=== PATIENT | male | born 1975 | race Caucasian/White ===

== ENCOUNTER → 2017-10-01 | Outpatient (CLI) | payer MEDICAID ==
--- NOTE | 2017-10-01 23:08 | MR ---
MRI CERVICAL SPINE: CLINICAL HISTORY: Neck pain causing bilateral hand pain, numbness, and tingling per patient. Cervical rissa, paresthesia, and C5-C6 cervical disc degeneration per order. TECHNIQUE: Multiplanar, multisequence imaging of the cervical spine is performed without IV contrast. . COMPARISON: None. FINDINGS: Sagittal images of the cervical spine show the craniocervical junction to appear within nor mal limits. The cervical and upper thoracic spinal cord is normal in course, caliber, and signal. V ertebral alignment is anatomic. The vertebral body and intravertebral disk heights are normal. Poste rior disc herniations are present at C5-C6 and C6-C7 levels on sagittal images effacing the anterior thecal sac. The bone marrow signal intensity is within normal limits. No significant spurring is seen . Axial images show the C2-C3 and C3-C4 levels to appear within normal limits. Axial images at C4-C5 level broad-based left paracentral disc protrusion effacing the anterolateral t hecal sac and causing asymmetric mild left-sided neural foraminal narrowing. Right-sided neural mary en is patent. Axial images at C5-C6 show lobulated paracentral disc protrusion effacing anterolateral thecal sac an d causing moderate bilateral neural foraminal narrowing. There is extension to right aspect of spinal cord causing slight flattening seen on axial image 26. Axial images at C6-C7 levels with broad-based right paracentral disc protrusion effacing anterolatera l thecal sac and causing asymmetric mild right-sided neural foraminal narrowing. Left-sided neural fo ramen is patent. Axial images at C7-T1 level are felt within normal limits. IMPRESSION: Degenerative changes C4-C5 and C6-C7 level with most prominent findings noted C5-C6 level as detailed above.
== END | disposition home or self-care (01) ==
LOC: RADMRIMAIN 17:49
PROVIDERS: ATTEND Orthopaedic Surgery Orthopaedic Surgery of the Spine
DX: M47.812 Spondylosis without myelopathy or radiculopathy, cervical region (principal)
CPT/HCPCS: 72141

== ENCOUNTER → 2017-12-11 | Day surgery (SDC) | payer MEDICAID ==
[2017-12-05 08:56] VITALS: BMI 47.5
[~2017-12-11] MED LIST: IV FLUID CONTINUATION 1,000 ML IV ONE; LACTATED RINGERS 1,000 ML IV SCH; LIDOCAINE 1% 20 ML VIAL (10MG/ML) FOR IV START INTRADERMA ONE
[2017-12-11 08:02] VITALS: TEMP 97.5
--- NOTE | 2017-12-11 08:58 | P.PCN ---
Date of Procedure: 12/11/17 Surgeon: Riley Pozo Pathology: none sent Condition: stable Disposition: PACU Description of Procedure: PREOPERATIVE DIAGNOSIS: Cervical radiculopathy. POSTOPERATIVE DIAGNOSIS: Cervical radiculopathy. PROCEDURE 1. Cervical epidural steroid injection under fluoroscopic guidance, C7-T1 level. 2. Cervical epidurogram. ANESTHESIA: Local anesthesia with 1% lidocaine and IV sedation with versed/ fentanyl. EBL: Minimal PROCEDURE INDICATION: The patient with neck pain and radiculitis unresponsive to conservative treatment consents for procedure, RAJ #1 today. No use of blood thinners. PROCEDURE DESCRIPTION / TECHNIQUE: The patient was seen and identified in the preoperative area. Risks, benefits, complications, and alternatives were discussed with the patient (including but not limited to incomplete pain relief, bleeding, infection, nerve damage, and allergies to medications), the patient agreed to proceed with the procedure and signed the consent after all questions were answered. Patient was taken to the OR and time out was completed to verify proper patient , position, laterality of pain, and allergies. Pt was placed in the prone position. A pillow was placed under the patients chest to increase the cervical interlaminar space. The cervical area was prepped and draped in the usual sterile fashion. Critical pause was taken. Vital signs were closely monitored during the procedure. Conscious sedation was used during the procedure to decrease patients anxiety. Using anterior-posterior fluoroscopy, the C7-T1 interlaminar space was identified and the skin over this site was marked and then infiltrated with 1% lidocaine subcutaneously in a left paramedian fashion. Subsequently, a 18-gauge 6-inch Tuohy epidural needle was inserted and advanced toward the epidural space by means of the loss of resistance technique and guided by AP and lateral fluoroscopy. After negative aspiration for blood or CSF and in the absence of paresthesias, the correct needle position in the epidural space was verified with the injection of 1 mL of the water soluble contrast dye Omnipaque- 180 and observing an excellent epidurogram with the epidural spread of the dye, after negative aspiration for blood and CSF and in the absence of paresthesias. Again after negative aspiration, a 5 ml mixture containing 20 mg of Decadron and 3 ml of preservative free Normal Saline solution was injected and a washout of epidurogram was seen. Needle was withdrawn intact, skin was cleansed, and bandages were applied. COMPLICATIONS: None COMMENTS: DISPOSITION / PLANS: The patient was placed in a supine position and transferred to the recovery area in a stable condition for observation. There was no evidence of upper extremity motor or sensory deficit after the procedure. Patient was discharged from the recovery room after meeting discharge criteria. Home discharge instructions were given to the patient by the staff. The patient was reexamined prior to discharge and there were no issues. The patient will schedule a follow up in the clinic in 2-4 weeks.
[2017-12-11 09:06] VITALS: RESP 16
[2017-12-11 09:15] LABS: Glucose,Whole Blood 122 mg/dL (75-99)
[2017-12-11 09:21] VITALS: BP 140/74; PULSE 74
--- NOTE | 2017-12-11 09:53 | FL ---
EXAMINATION TYPE: FL guided pain mgmt statistic DATE OF EXAM: 12/11/2017 HISTORY: Pain Cervical Epidural. FL 45 sec.
== END ==
LOC: ORPAIN 07:15
PROVIDERS: ATTEND Anesthesiology
DX: G89.29 Other chronic pain (principal); M54.12 Radiculopathy, cervical region; E66.9 Obesity, unspecified; Z68.42 Body mass index [BMI] 45.0-49.9, adult
CPT/HCPCS: 62321; J2250; J1100; Q9965; J3010; 99152

== ENCOUNTER 2018-01-07 06:28 | Day surgery (SDC) | payer MEDICAID ==
[2018-01-01 13:25] VITALS: BMI 47.5
[2018-01-07] MEDS ORDERED: LACTATED RINGERS 1,000 ML IV ONE ×2 (06:40→07:45)
[2018-01-07 06:41] VITALS: RESP 18; TEMP 97.8
[2018-01-07] MEDS ORDERED: LIDOCAINE 1% 20 ML VIAL (10MG/ML) FOR IV START INTRADERMA ONE (06:41)
[2018-01-07] MEDS ORDERED: IV FLUID CONTINUATION 1,000 ML IV ONE (08:34)
--- NOTE | 2018-01-07 08:40 | FL ---
EXAMINATION TYPE: FL guided pain mgmt statistic DATE OF EXAM: 01/07/2018 FLUOROSCOPY Fluoroscopy time of 12 seconds seconds was used during cervical epidural injection. 1 image/s docume nt/s the procedure.
[2018-01-07 08:43] VITALS: BP 127/76; PULSE 76
--- NOTE | 2018-01-09 11:13 | P.PCN ---
Date of Procedure: 01/07/18 Surgeon: Riley Pozo Pathology: none sent Condition: stable Disposition: PACU Description of Procedure: PREOPERATIVE DIAGNOSIS: Cervical radiculopathy. POSTOPERATIVE DIAGNOSIS: Cervical radiculopathy. PROCEDURE 1. Cervical epidural steroid injection under fluoroscopic guidance, C7-T1 level. 2. Cervical epidurogram. ANESTHESIA: Local anesthesia with 1% lidocaine and IV sedation with versed/ fentanyl. EBL: Minimal PROCEDURE INDICATION: The patient with neck pain and radiculitis unresponsive to conservative treatment consents for procedure, RAJ #2 today after 1-2 days' relief from previous procedure. No use of blood thinners. PROCEDURE DESCRIPTION / TECHNIQUE: The patient was seen and identified in the preoperative area. Risks, benefits, complications, and alternatives were discussed with the patient (including but not limited to incomplete pain relief, bleeding, infection, nerve damage, and allergies to medications), the patient agreed to proceed with the procedure and signed the consent after all questions were answered. Patient was taken to the OR and time out was completed to verify proper patient , position, laterality of pain, and allergies. Pt was placed in the prone position. A pillow was placed under the patients chest to increase the cervical interlaminar space. The cervical area was prepped and draped in the usual sterile fashion. Critical pause was taken. Vital signs were closely monitored during the procedure. Conscious sedation was used during the procedure to decrease patients anxiety. Using anterior-posterior fluoroscopy, the C7-T1 interlaminar space was identified and the skin over this site was marked and then infiltrated with 1% lidocaine subcutaneously in a left paramedian fashion. Subsequently, a 18-gauge 6-inch Tuohy epidural needle was inserted and advanced toward the epidural space by means of the loss of resistance technique and guided by AP and lateral fluoroscopy. After negative aspiration for blood or CSF and in the absence of paresthesias, the correct needle position in the epidural space was verified with the injection of 1 mL of the water soluble contrast dye Omnipaque- 180 and observing an excellent epidurogram with the epidural spread of the dye, after negative aspiration for blood and CSF and in the absence of paresthesias. Again after negative aspiration, a 3 ml mixture containing 10 mg of Decadron and 2 ml of preservative free Normal Saline solution was injected and a washout of epidurogram was seen. Needle was withdrawn intact, skin was cleansed, and bandages were applied. COMPLICATIONS: None COMMENTS: DISPOSITION / PLANS: The patient was placed in a supine position and transferred to the recovery area in a stable condition for observation. There was no evidence of upper extremity motor or sensory deficit after the procedure. Patient was discharged from the recovery room after meeting discharge criteria. Home discharge instructions were given to the patient by the staff. The patient was reexamined prior to discharge and there were no issues. The patient will schedule a follow up in the clinic in 2-4 weeks. Consider TPI in future.
== END 2018-01-07 09:01 | disposition home or self-care (01) ==
LOC: ORPAIN 06:28
PROVIDERS: ATTEND Anesthesiology
DX: G89.29 Other chronic pain (principal); M54.12 Radiculopathy, cervical region; E66.9 Obesity, unspecified; Z68.42 Body mass index [BMI] 45.0-49.9, adult
CPT/HCPCS: 62321; J2250; J1100; Q9965; J3010; 99152

== ENCOUNTER → 2018-01-29 | Outpatient (CLI) | payer MEDICAID ==
[2018-01-29 13:45] VITALS: BP 152/76; PULSE 80; RESP 18
--- NOTE | 2018-01-29 14:01 | P.PN ---
Subjective Progress Note Date: 01/29/18 Principal diagnosis: Cervical radiculopathy This is a 42-year-old male with history of cervical radiculopathy and numbness in his left hand. The patient underwent cervical epidural steroid injection twice which resulted in significant relief of his numbness. The patient now is fully functional in his left hand. The patient denies any bowel or bladder dysfunction or any weakness in the upper or lower extremities. Objective - Vital Signs Vital signs: Vital Signs Temp Pulse 80 01/29/18 13:34 Resp 18 01/29/18 13:34 BP 152/76 01/29/18 13:34 Pulse Ox 98 01/29/18 13:34 Intake & Output 01/28/18 01/29/18 01/29/18 18:59 06:59 18:59 Weight 158.757 kg - Constitutional General appearance: Present: morbidly obese - EENT Eyes: Present: PERRLA - Neurologic Neurologic: Present: CNII-XII intact - Musculoskeletal Musculoskeletal: Present: gait normal - Psychiatric Psychiatric: Present: A&O x's 3, appropriate affect, intact judgment & insight Assessment and Plan Plan: The patient is doing well status post cervical epidural steroid injection and we will see him on an as-needed basis.
== END | disposition home or self-care (01) ==
LOC: PNWHC3 13:19
PROVIDERS: ATTEND Anesthesiology
DX: M54.12 Radiculopathy, cervical region (principal); Z98.890 Other specified postprocedural states
CPT/HCPCS: 99211

== ENCOUNTER → 2018-03-28 | Outpatient (CLI) | payer MEDICAID ==
--- NOTE | 2018-03-28 17:11 | PN ---
PROGRESS NOTE DATE OF SERVICE: 03/28/2018 43-year-old gentleman has been [facility] of obstructive sleep apnea-hypopnea syndrome. Recently patient had CPAP titration and then he received his new CPAP unit. Today is his first visit with a new CPAP machine. According to the patient's , he still has episodes of snoring while pressure is 10 cm of water. Otherwise, the patient sleeps well with the machine without problems. Spurger Sleepiness Scale today is 7. I checked the patient's CPAP unit. CPAP pressure is 11 cm of water. Usage is 100% of the time more than 4 hours, average 7.5 hours. Leak is only 4 L/minute. Apnea-hypopnea index is only 0.9, which is totally perfect. MEDICATIONS: Tramadol, methocarbamol, Motrin. PHYSICAL EXAM: GENERAL Patient in no distress. VITAL SIGNS BP 156/74, HR 78, RR 16, weight 387, temp 97.9, oxygen saturation room air 97%. HEENT PERRLA, EOMI, evaluation of oropharynx showed low position of soft palate. NECK Supple, no JVD. Thyroid is not palpable. LUNGS Clear to percussion and to auscultation. Good air exchange. No wheezing or rhonchi. HEART S1, S2 regular. No murmurs, gallops, or rubs. ABDOMEN Soft and nontender. Bowel sounds are present. No organomegaly appreciated. EXTREMITIES No clubbing or cyanosis. CIGAR INSPECTOR Awake, alert, and oriented X3. Cranial nerves 2 to 7 intact. There is no fasciculation or atrophy. noted. No focal deficits observed. According to our records, patient increased his weight from 359 pounds up to 387 pounds, which is close to 30 pounds. IMPRESSION: 1. Obstructive sleep apnea-hypopnea syndrome. The patient demonstrated 100% compliance with treatment benefitting from treatment. 2. Obesity. Patient increased weight according to our records from about 30 pounds. 3. History of attention-deficit/hyperactivity disorder. 4. Back problems. 5. Neck pain. 6. History of numbness in hands. PLAN: 1. I will change the pressure in the machine to automatic regimen with range of pressure up to up to 15 cm of water to be sure there is not any snoring. 2. Losing weight. 3. Sleep hygiene with regular time in bed for at least 8 hours. 4. No driving if feeling sleepiness. Thank you very much for allowing me to participate in management of your patient. Sincerely, Ino Suarez MD, PhD, FAASM Diplomat of [employer] [employer] Budget Officer of [facility] [place] MMODL / ANGEL: [id number] /
== END | disposition home or self-care (01) ==
LOC: SLEEP 15:55
PROVIDERS: ATTEND Internal Medicine
DX: G47.33 Obstructive sleep apnea (adult) (pediatric) (principal); E66.9 Obesity, unspecified; F90.9 Attention-deficit hyperactivity disorder, unspecified type; M54.2 Cervicalgia; Z99.89 Dependence on other enabling machines and devices; Z79.1 Long term (current) use of non-steroidal anti-inflammatories (NSAID); Z79.891 Long term (current) use of opiate analgesic; Z79.899 Other long term (current) drug therapy; Z87.2 Personal history of diseases of the skin and subcutaneous tissue

== ENCOUNTER 2018-04-17 10:09 | Emergency (ER) | payer MEDICAID ==
[2018-04-17 10:39] VITALS: RESP 18
[2018-04-17] MEDS ORDERED: ONDANSETRON 4 MG/2 ML VIAL IVP STA (10:44)
--- NOTE | 2018-04-17 10:48 | ED ---
General Adult HPI - General Chief complaint: Nausea/Vomiting/Diarrhea Stated complaint: nausea Time Seen by Provider: 04/17/18 10:35 Source: patient, RN notes reviewed Mode of arrival: wheelchair Limitations: physical limitation - History of Present Illness Initial comments: Is a 43-year-old male who presents emergency Department with no significant past medical history. Patient states he has not been feeling well over the last week mostly nauseated with a couple episodes of vomiting. Patient states he has not vomited today. He did have an episode of diarrhea. Patient went into the urgent care because he just wasn't feeling well and they sent him over because they noted a flipped T-wave in leads V2 and V3. They have no old EKG to compare to. Patient denies any chest pain any palpitations any shortness of breath. Patient denies any jaw pain arm pain or back pain. Patient denies any pain with exertion. Patient denies any recent fever chills or cough. Patient denies any abdominal pain though he is nauseated and has vomited a couple times in the last week. Patient denies headache patient denies numbness weakness. Patient denies any lightheadedness or dizziness. - Related Data Home Medications Medication Instructions Recorded Confirmed traMADol HCL [Ultram] 100 mg PO Q6HR PRN 10/31/17 04/17/18 Ibuprofen [Motrin] 800 mg PO TID PRN 11/01/17 04/17/18 Baclofen [Lioresal] 5 mg PO TID 01/01/18 04/17/18 Allergies Allergy/AdvReac Type Severity Reaction Status Date / Time No Known Allergies Allergy Verified 04/17/18 11:07 Review of Systems ROS Statement: Those systems with pertinent positive or pertinent negative responses have been documented in the HPI. ROS Other: All systems not noted in ROS Statement are negative. Past Medical History Past Medical History: Sleep Apnea/CPAP/BIPAP Additional Past Medical History / Comment(s): uses cpap, BACK PAIN History of Any Multi-Drug Resistant Organisms: None Reported Past Surgical History: No Surgical Hx Reported Additional Past Surgical History / Comment(s): PAIN CLINIC INJECTION- Additional Past Anesthesia/Blood Transfusion Reaction / Comment(s): never has had general anesthesia or blood transfusion Past Psychological History: ADD/ADHD Smoking Status: Former smoker Past Alcohol Use History: Rare Past Drug Use History: None Reported - Past Family History Father Family Medical History: Cancer Additional Family Medical History / Comment(s): lung CA General Exam - General Exam Comments Initial Comments: GENERAL: Patient is well-developed and well-nourished. Patient is nontoxic and well- hydrated and is in mild distress. ENT: Neck is soft and supple. No significant lymphadenopathy is noted. Oropharynx is clear. Moist mucous membranes. Neck has full range of motion without eliciting any pain. EYES: The sclera were anicteric and conjunctiva were pink and moist. Extraocular movements were intact and pupils were equal round and reactive to light. Eyelids were unremarkable. PULMONARY: Unlabored respirations. Good breath sounds bilaterally. No audible rales rhonchi or wheezing was noted. CARDIOVASCULAR: There is a regular rate and rhythm without any murmurs gallops or rubs. ABDOMEN: Soft and nontender with normal bowel sounds. SKIN: Skin is clear with no lesions or rashes and otherwise unremarkable. NEUROLOGIC: Patient is alert and oriented x3. Cranial nerves II through XII are grossly intact. Motor and sensory are also intact. Normal speech, volume and content. Symmetrical smile. MUSCULOSKELETAL: Normal extremities with adequate strength and full range of motion. No lower extremity swelling or edema. No calf tenderness. LYMPHATICS: No significant lymphadenopathy is noted PSYCHIATRIC: Normal psychiatric evaluation. Normal interpersonal interactions appears functionally intact in deals appropriately with others. No signs of depression. No signs of anxiety. Limitations: physical limitation Course Vital Signs 04/17/18 04/17/18 10:35 13:02 Temperature 99.4 F 98.4 F Pulse Rate 80 73 Respiratory 18 18 Rate Blood Pressure 156/81 159/76 O2 Sat by Pulse 99 97 Oximetry Medical Decision Making - Medical Decision Making EKG shows normal sinus rhythm at 73 bpm IA interval is 134 QRS is 94 Q-T intervals 400 QTC is 440. Patient's EKG shows no acute abnormalities. Patient 's old EKG showed no T-wave inversions however the EKG from the office showed T- wave inversions in V2 and V3 I repeated an EKG which did not have any recent changes. I recommended that the patient be admitted he did not want to stay and said he follow up for stress test with his doctor. I told the patient be leaving A and he was in agreement Chest x-ray shows no acute abnormality - Lab Data Result diagrams: 04/17/18 11:00 04/17/18 11:00 Lab Results 04/17/18 04/17/18 04/17/18 Range/Units 11:00 11:00 11:00 WBC 7.5 (3.8-10.6) k/uL RBC 5.06 (4.30-5.90) m/uL Hgb 14.7 (13.0-17.5) gm/dL Hct 42.0 (39.0-53.0) % MCV 83.0 (80.0-100.0) fL MCH 29.0 (25.0-35.0) pg MCHC 34.9 (31.0-37.0) g/dL RDW 12.7 (11.5-15.5) % Plt Count 319 (150-450) k/uL Neutrophils % 76 % Lymphocytes % 16 % Monocytes % 5 % Eosinophils % 1 % Basophils % 1 % Neutrophils # 5.7 (1.3-7.7) k/uL Lymphocytes # 1.2 (1.0-4.8) k/uL Monocytes # 0.4 (0-1.0) k/uL Eosinophils # 0.1 (0-0.7) k/uL Basophils # 0.0 (0-0.2) k/uL PT (9.0-12.0) sec INR (<1.2) APTT (22.0-30.0) sec Sodium 140 (137-145) mmol/L Potassium 4.5 (3.5-5.1) mmol/L Chloride 105 (98-107) mmol/L Carbon Dioxide 24 (22-30) mmol/L Anion Gap 11 mmol/L BUN 16 (9-20) mg/dL Creatinine 0.83 (0.66-1.25) mg/dL Est GFR (CKD-EPI)AfAm >90 (>60 ml/min/1.73 sqM) Est GFR (CKD-EPI)NonAf >90 (>60 ml/min/1.73 sqM) Glucose 124 H (74-99) mg/dL Calcium 9.7 (8.4-10.2) mg/dL Magnesium 2.0 (1.6-2.3) mg/dL Total Bilirubin 0.7 (0.2-1.3) mg/dL AST 26 (17-59) U/L ALT 49 (21-72) U/L Alkaline Phosphatase 53 (38-126) U/L Total Creatine Kinase 144 (55-170) U/L CK-MB (CK-2) 0.7 (0.0-2.4) ng/mL CK-MB (CK-2) Rel Index 0.5 Troponin I <0.012 (0.000-0.034) ng/mL Total Protein 7.3 (6.3-8.2) g/dL Albumin 4.6 (3.5-5.0) g/dL 04/17/18 Range/Units 11:30 WBC (3.8-10.6) k/uL RBC (4.30-5.90) m/uL Hgb (13.0-17.5) gm/dL Hct (39.0-53.0) % MCV (80.0-100.0) fL MCH (25.0-35.0) pg MCHC (31.0-37.0) g/dL RDW (11.5-15.5) % Plt Count (150-450) k/uL Neutrophils % % Lymphocytes % % Monocytes % % Eosinophils % % Basophils % % Neutrophils # (1.3-7.7) k/uL Lymphocytes # (1.0-4.8) k/uL Monocytes # (0-1.0) k/uL Eosinophils # (0-0.7) k/uL Basophils # (0-0.2) k/uL PT 10.4 (9.0-12.0) sec INR 1.1 (<1.2) APTT 19.9 L (22.0-30.0) sec Sodium (137-145) mmol/L Potassium (3.5-5.1) mmol/L Chloride (98-107) mmol/L Carbon Dioxide (22-30) mmol/L Anion Gap mmol/L BUN (9-20) mg/dL Creatinine (0.66-1.25) mg/dL Est GFR (CKD-EPI)AfAm (>60 ml/min/1.73 sqM) Est GFR (CKD-EPI)NonAf (>60 ml/min/1.73 sqM) Glucose (74-99) mg/dL Calcium (8.4-10.2) mg/dL Magnesium (1.6-2.3) mg/dL Total Bilirubin (0.2-1.3) mg/dL AST (17-59) U/L ALT (21-72) U/L Alkaline Phosphatase (38-126) U/L Total Creatine Kinase (55-170) U/L CK-MB (CK-2) (0.0-2.4) ng/mL CK-MB (CK-2) Rel Index Troponin I (0.000-0.034) ng/mL Total Protein (6.3-8.2) g/dL Albumin (3.5-5.0) g/dL Disposition Clinical Impression: Nausea & vomiting Disposition: Left Against Medical Advice Instructions: Acute Nausea and Vomiting (ED), Chest Pain (ED) Is patient prescribed a controlled substance at d/c from ED?: No Referrals: Julio Narvaez MD [Primary Care Provider] - 1-2 days Time of Disposition: 13:37
[2018-04-17 11:25] LABS: Basophils % (A) 1 %; Eosinophils # (A) 0.1 k/uL (0-0.7); Eosinophils % (A) 1 %; HGB 14.7 gm/dL (13.0-17.5); Lymphocytes # (A) 1.2 k/uL (1.0-4.8); Lymphocytes % (A) 16 %; MCHC 34.9 g/dL (31.0-37.0); Mean Platelet Volume 6.8; Monocytes # (A) 0.4 k/uL (0-1.0); Monocytes % (A) 5 %; Neutrophils # (A) 5.7 k/uL (1.3-7.7); Neutrophils % (A) 76 %; Platelet Count 319 k/uL (150-450); RBC 5.06 m/uL (4.30-5.90); RDW 12.7 % (11.5-15.5); WBC 7.5 k/uL (3.8-10.6)
[2018-04-17 11:45] LABS: ALT 49 U/L (21-72); AST 26 U/L (17-59); Albumin 4.6 g/dL (3.5-5.0); Alkaline Phosphatase 53 U/L (38-126); Anion Gap 11 mmol/L; Blood Urea Nitrogen 16 mg/dL (9-20); Calcium 9.7 mg/dL (8.4-10.2); Carbon Dioxide 24 mmol/L (22-30); Chloride 105 mmol/L (98-107); Glucose 124 mg/dL (74-99); Potassium 4.5 mmol/L (3.5-5.1); Sodium 140 mmol/L (137-145); Total Bilirubin 0.7 mg/dL (0.2-1.3); Total Protein 7.3 g/dL (6.3-8.2)
[2018-04-17 11:48] LABS: Creatine Kinase 144 U/L (55-170)
--- NOTE | 2018-04-17 11:57 | XR ---
EXAMINATION TYPE: XR chest 2V DATE OF EXAM: 04/17/2018 COMPARISON: 11/26/2010 INDICATION: Chest pain TECHNIQUE: Frontal and lateral views of the chest are obtained. FINDINGS: The heart size is normal. The pulmonary vasculature is normal. The lungs are clear. IMPRESSION: 1. No acute pulmonary process.
[2018-04-17 12:00] LABS: Creatine Kinase MB 0.7 ng/mL (0.0-2.4); Troponin I <0.012 ng/mL (0.000-0.034)
[2018-04-17 12:21] LABS: INR 1.1 (<1.2); Prothrombin Time 10.4 sec (9.0-12.0)
[2018-04-17 12:38] LABS: Partial Thromboplastin Time 19.9 sec (22.0-30.0)
[2018-04-17 13:58] VITALS: BP 160/89; PULSE 80; TEMP 98.6
== END 2018-04-17 13:58 | disposition left against medical advice (07) ==
LOC: EC 10:09
DX: R11.2 Nausea with vomiting, unspecified (principal); R19.7 Diarrhea, unspecified; G47.30 Sleep apnea, unspecified; Z99.89 Dependence on other enabling machines and devices; Z87.891 Personal history of nicotine dependence; Z79.899 Other long term (current) drug therapy
CPT/HCPCS: 36415; 93005; 80053; 82550; 82553; 83735; 84484; 85025; 85610; 85730; 71046; 99284; 96374; J2405

== ENCOUNTER → 2018-04-30 | Outpatient (CLI) | payer MEDICAID ==
--- NOTE | 2018-04-30 13:26 | P.STRESS ---
- Stress Test Note Stress Test Results/Findings: Exam Performed: stress test Exam Date: 04/30/18 Reason for Exam: ABN EKG Height: 6 ft Weight: 167.376 kg Protocol: GINETTE Stage: 3 Duration of Exercise: 6:30 Resting Heart Rate: 94 Resting Blood Pressure: 155/103 Maximum Achieved Heart Rate: 152 Maximum Achieved Blood Pressure: 220/54 85% PMHR: 149 100% PMHR: 175 METS: 7.7 Technologist Comment: Stress Test Results/Findings: This is a 43-year-old gentleman with history of hypertension and abnormal EKG being evaluated for Cardec status. Stress data: Baseline EKG showed sinus rhythm with normal NC interval and QRS duration. Blood pressure at rest is 155/103 with pulse rate of 94. Patient walked on a Ginette protocol for 6 minutes and 30 seconds achieving a maximum heart rate of 152 with a blood pressure of 219/88. EKGs taken during and after the exercise did not reveal any significant changes from the baseline. Occasional PVCs were noted. Final impression: #1. Negative stress test #2 .patient did not express any chest pain #3. Patient's exercise capacity is about average. #4. No arrhythmias detected.
--- NOTE | 2018-05-01 12:47 | ECHOF ---
Referral Reason:R94.31 Abnormal EKG MEASUREMENTS -------- HEIGHT: 175.3 cm WEIGHT: 167.4 kg BP: RVIDd: 3.1 cm (< 3.3) IVSd: 1.4 cm (0.6 - 1.1) LVIDd: 4.1 cm (3.9 - 5.3) LVPWd: 1.4 cm (0.6 - 1.1) IVSs: 1.6 cm LVIDs: 3.6 cm LVPWs: 1.4 cm LAESV Index (A-L): 21.92 ml/m Ao Diam: 3.9 cm (2.0 - 3.7) AV Cusp: 2.3 cm (1.5 - 2.6) LA Diam: 4.1 cm (2.7 - 3.8) MV EXCURSION: 14.837 mm (> 18.000) MV EF SLOPE: 54 mm/s (70 - 150) EPSS: 0.4 cm MV E Conrado: 0.67 m/s MV DecT: 294 ms MV A Conrado: 0.78 m/s MV E/A Ratio: 0.86 FINDINGS -------- Sinus rhythm. Morbid Obesity The left ventricular size is normal. There is mild concentric left ventricular hypertrophy. Overa ll left ventricular systolic function is low-normal with, an EF between 50 - 55 %. The right ventricle is normal in size. The left atrial size is normal. Normal LA size by volume 22+/-6 ml/m2. The right atrial size is normal. There is mild aortic valve sclerosis. There is no evidence of aortic regurgitation. Mild mitral annular calcification present. Mild mitral regurgitation is present. Mild tricuspid regurgitation present. There is no evidence of pulmonary hypertension. The right v entricular systolic pressure, as measured by Doppler, is {RVSP}. There is no pulmonic regurgitation present. The aortic root size is normal. Echo free space represents a pericardial fat pad. CONCLUSIONS -------- 1. Sinus rhythm. 2. Morbid Obesity 3. The left ventricular size is normal. 4. There is mild concentric left ventricular hypertrophy. 5. Overall left ventricular systolic function is low-normal with, an EF between 50 - 55 %. 6. The right ventricle is normal in size. 7. There is mild aortic valve sclerosis. 8. Mild mitral annular calcification present. 9. Mild mitral regurgitation is present. 10. Mild tricuspid regurgitation present. 11. There is no evidence of pulmonary hypertension. 12. The right ventricular systolic pressure, as measured by Doppler, is {RVSP}. 13. There is no pulmonic regurgitation present. 14. The aortic root size is normal. 15. Echo free space represents a pericardial fat pad. SUPREME COURT JUDGE: Maci Heath RDCS
== END ==
LOC: RADNMMAIN 11:01
PROVIDERS: ATTEND Internal Medicine
DX: I08.3 Combined rheumatic disorders of mitral, aortic and tricuspid valves (principal)
CPT/HCPCS: 93017; 93306

== ENCOUNTER → 2021-07-07 | Outpatient (CLI) | payer OTHER ==
--- NOTE | 2021-07-07 20:26 | CONS ---
CONSULTATION DATE OF SERVICE: 07/07/2021 This 46-year-old gentleman has been evaluated in [facility] for obstructive sleep apnea-hypopnea syndrome. The last time I saw the patient was in the beginning of 2018. HISTORY OF PRESENT ILLNESS/SLEEP-WAKE EVALUATION: The patient has had a history of obstructive sleep apnea-hypopnea syndrome for about 14 years. Since that time, he has been on treatment with CPAP and he continues to use equipment every night for the whole night. During his last visit, I changed the regimen of his machine to automatic, and again he continued to use the equipment every night for the whole night. His sleep schedule is from 11:30 p.m. to 7 a.m. on working days and from midnight until 9 a.m. on weekends. No problems with falling asleep. No TV in bedroom. He sleeps in different positions. He may wake up from sleep once with an episode of nocturia. No history of hypnagogic hallucinations, sleep paralysis or cataplexy. [place] Sleepiness Scale today is 4, which is totally normal. PAST MEDICAL HISTORY: Positive for ADHD, back pain, neck pain, numbness in hands. PAST SURGICAL HISTORY: None. MEDICATIONS: Motrin 800 mg as needed, methocarbamol 750 mg as needed. SOCIAL HISTORY: Positive for smoking for about 10 pack/years; quit 17 years ago. Alcohol consumption occasional. FAMILY HISTORY: Hypertension, heart problems, cancer. REVIEW OF SYSTEMS: No fevers. No double vision. No recent chest pain. No shortness of breath. No abdominal pain. No bleeding episodes. No blood in the urine. No seizure episodes. Rare snoring. PHYSICAL EXAMINATION: GENERAL: A pleasant gentleman without distress. VITAL SIGNS: BP 187/104, HR 72, RR 15, height 6 feet 0 inches, weight 358. Body mass index 48.5. Temperature 98.3, oxygen saturation at room air 98%. HEENT: PERRLA, EOMI, evaluation of oropharynx showed tongue protrudes midline. Extremely low position of soft palate. Mallampati IV. NECK: Supple, no JVD. Thyroid is not palpable. LUNGS: Clear to percussion and to auscultation. Good air exchange. No wheezing or rhonchi. HEART: S1, S2 regular. No murmurs, gallops, or rubs. ABDOMEN: Obese. EXTREMITIES: No clubbing or cyanosis. GRANULIZING MACHINE OPERATOR: Awake, alert, and oriented X3. Cranial nerves 2 to 7 intact. There is no fasciculation or atrophy. noted. No focal deficits observed. I checked the patient's CPAP unit. Range of the pressure is 10-15, average pressure 12.9. Usage is 100% of the nights more than 4 hours. Average usage is 7.5 hours per night. Leak is only 2 L/minute. Apnea-hypopnea index is 0.3, which is totally normal. IMPRESSION: 1. Obstructive sleep apnea-hypopnea syndrome. Patient demonstrated 100% compliance with treatment. Normal respiration on CPAP. 2. Obesity. 3. History of attention deficit hyperactivity disorder. 4. Back problems. 5. History of neck problems. 6. History of numbness in hands. PLAN: 1. Patient will continue to use AutoPAP every night for the whole night. I will keep CPAP pressure in the machine at 10-15 cm of water. 2. Losing weight. 3. Sleep hygiene with regular time in bed for at least 7-1/2 to 8 hours. 4. No driving if feeling sleepiness. 5. Prescription for all necessary CPAP supplies, including mask, tube, filters. 6. Follow-up visit in 6 months. Thank you very much for allowing me to participate in the management of your patient. Sincerely, Ino Suarez MD, PhD, FAASM Diplomat of [place] [employer] Sleep Medicine Board of [place] [employer] Professor Of [employer] of [facility] [place] MMADDYL / ANGEL: [id number] /
== END ==
LOC: SLEEP 14:19
PROVIDERS: ATTEND Internal Medicine
DX: G47.33 Obstructive sleep apnea (adult) (pediatric) (principal); E66.9 Obesity, unspecified; F90.9 Attention-deficit hyperactivity disorder, unspecified type; Z86.69 Personal history of other diseases of the nervous system and sense organs; M53.80 Other specified dorsopathies, site unspecified; M53.82 Other specified dorsopathies, cervical region; Z68.42 Body mass index [BMI] 45.0-49.9, adult; Z99.89 Dependence on other enabling machines and devices
CPT/HCPCS: 99202

== ENCOUNTER → 2021-12-07 | Outpatient (CLI) | payer OTHER ==
--- NOTE | 2021-12-08 07:44 | CT ---
EXAMINATION TYPE: CT urogram wo/w con DATE OF EXAM: 12/07/2021 COMPARISON: None. HISTORY: Hematuria CT DLP: 9420.60 mGycm, Automated Exposure Control for Dose Reduction was Utilized. CONTRAST: CT scan of the abdomen and pelvis is performed without oral and without and with IV Contrast, patient injected with 100 mL of Isovue 300. Urogram protocol. Three-D reconstructed images were created on a n independent workstation and reviewed. FINDINGS: KUB: Noncontrast images show no renal calculi bilaterally. Postcontrast images show symmetric cortica l medullary uptake and excretion without concerning solid or cystic renal mass or hydronephrosis seen bilaterally. Delayed imaging shows satisfactory opacification of bilateral ureters without obstructi ng calculus. Urinary bladder shows no intraluminal calculus. On delayed imaging there is contrast kaasndra ling shows suspicious lobulated hypoechoic mass along the left posterior bladder wall measuring appro ximately 1.4 x 1.2 x 1.7 cm axial series 10 image 80 and series 18 image 81 along with coronal image 101 series 15 and sagittal image 137 series 17. LUNG BASES: No significant abnormality is appreciated. LIVER/GB: On noncontrast images liver is heterogeneously slightly hypodense relative to spleen consis tent with mild diffuse fatty infiltration. Somewhat contracted gallbladder. No biliary dilatation. PANCREAS: No significant abnormality is seen. SPLEEN: No significant abnormality is seen. ADRENALS: No significant abnormality is seen. BOWEL: Incidental normal-appearing appendix right lower quadrant. PROSTATE/SEMINAL VESICLES: No gross abnormality seen. LYMPH NODES: No greater than 1cm abdominal or pelvic lymph nodes are appreciated. OSSEOUS STRUCTURES: No significant abnormality is seen. OTHER: No significant additional abnormality is seen. IMPRESSION: There is a suspicious intraluminal posterior left lobulated 1.7 cm hypodense mass within the bladder worrisome for neoplasm given patient history of hematuria. Further investigation with cys toscopy or direct visualization is advised.
== END | disposition home or self-care (01) ==
LOC: RADCTMAIN 15:26
PROVIDERS: ATTEND Urology
DX: R93.41 Abnormal radiologic findings on diagnostic imaging of renal pelvis, ureter, or bladder (principal)
CPT/HCPCS: 84153; 74178; 74400; Q9967

== ENCOUNTER → 2021-12-19 | Outpatient (CLI) | payer OTHER ==
[2021-12-19 18:58] LABS: Basophils # (A) 0.06 X 10*3/uL (0.00-0.10); Basophils % (A) 0.9 %; Eosinophils % (A) 1.6 %; HCT 41.3 % (39.6-50.0); Lymphocytes # (A) 1.61 X 10*3/uL (0.90-5.00); Lymphocytes % (A) 25.3 %; MCH 30.5 pg (27.0-32.0); MCHC 33.9 g/dL (32.0-37.0); Mean Platelet Volume 9.9 fL (9.5-12.2); Monocytes # (A) 0.65 X 10*3/uL (0.20-1.00); Monocytes % (A) 10.2 %; Neutrophils # (A) 3.85 X 10*3/uL (1.80-7.70); Neutrophils % (A) 60.6 %; Platelet Count 244 X 10*3/uL (140-440); RBC 4.59 X 10*6/uL (4.40-5.60); RDW 11.9 % (11.5-14.5); WBC 6.36 X 10*3/uL (4.50-10.00)
[2021-12-19 19:11] LABS: African American GFR (CKD) 116.9 (60.0-200.0); Anion Gap 14.8 mmol/L (10.00-18.00); BUN/Creat Ratio 14.73 Ratio (12.00-20.00); Blood Urea Nitrogen 13.2 mg/dL (9.0-27.0); Calcium 9.9 mg/dL (8.7-10.3); Carbon Dioxide 21.4 mmol/L (20.0-27.5); Non-African American GFR(CKD) 100.8 (60.0-200.0); Potassium 4.3 mmol/L (3.5-5.5)
== END | disposition home or self-care (01) ==
LOC: LABPAT 11:06
PROVIDERS: ATTEND Urology
DX: Z01.812 Encounter for preprocedural laboratory examination (principal); C67.9 Malignant neoplasm of bladder, unspecified
CPT/HCPCS: 80048; 85025

== ENCOUNTER 2021-12-20 12:58 | Day surgery (SDC) | payer OTHER ==
[2021-12-15 10:54] VITALS: BMI 47.5
--- NOTE | 2021-12-18 19:17 | P.GSHP ---
History of Present Illness H&P Date: 12/18/21 46 yo male with gross hematuria. He had a ct scan showing normal upper tracts. THe bladder phase suggested a growth in the bladder. Cystoscopy identfied a medium sized papillary tumor on the left posterior bladder wall. He quit smoking 15 years ago. He comes for a turbt. - Constitutional Constitutional: Denies chills, Denies fever - EENT Eyes: denies blurred vision, denies pain Ears, nose, mouth and throat: Denies headache, Denies sore throat - Cardiovascular Cardiovascular: Denies chest pain, Denies shortness of breath - Respiratory Respiratory: Denies cough, Denies 7 - Gastrointestinal Gastrointestinal: Denies abdominal pain, Denies diarrhea, Denies nausea, Denies vomiting - Genitourinary (Female) Genitourinary: Denies dysuria, Denies hematuria - Genitourinary (Male) Genitourinary: Denies dysuria, Denies hematuria - Musculoskeletal Musculoskeletal: Denies myalgias - Integumentary Integumentary: Denies pruritus, Denies rash - Neurological Neurological: Denies numbness, Denies weakness - Psychiatric Psychiatric: Denies anxiety, Denies depression - Endocrine Endocrine: Denies fatigue, Denies weight change Past Medical History Past Medical History: Cancer, Hyperlipidemia, Hypertension, Sleep Apnea/CPAP/BIPAP Additional Past Medical History / Comment(s): Uses CPAP, back pain, bladder tumor diagnosed 12/14/21. History of Any Multi-Drug Resistant Organisms: None Reported Past Surgical History: No Surgical Hx Reported Additional Past Surgical History / Comment(s): PAIN CLINIC INJECTION. Past Anesthesia/Blood Transfusion Reactions: Motion Sickness Additional Past Anesthesia/Blood Transfusion Reaction / Comment(s): Never has had general anesthesia or blood transfusion. Past Psychological History: ADD/ADHD Smoking Status: Former smoker Past Alcohol Use History: Occasional Additional Past Alcohol Use History / Comment(s): Quit smoking approx. 2006, STARTED SMOKING AT AGE 17, SMOKED 1/2PPD. Past Drug Use History: None Reported - Past Family History Father Family Medical History: Cancer Additional Family Medical History / Comment(s): Lung cancer. Mother Family Medical History: Cancer Additional Family Medical History / Comment(s): Cervical cancer. Medications and Allergies Home Medications Medication Instructions Recorded Confirmed Type Ibuprofen 800 mg PO Q8H PRN 12/15/21 12/15/21 History Losartan [Cozaar] 50 mg PO BID 12/15/21 12/15/21 History Methocarbamol [Robaxin-750] 750 mg PO DIRECTED PRN 12/15/21 12/15/21 History Metoprolol Tartrate 25 mg PO BID 12/15/21 12/15/21 History Allergies Allergy/AdvReac Type Severity Reaction Status Date / Time No Known Allergies Allergy Verified 12/15/21 11:50 Surgical - Exam - General well developed, well nourished, no distress - Eyes PERRL - ENT no hearing loss - Neck no masses - Respiratory normal expansion, normal respiratory effort - Cardiovascular Rhythm: regular - Abdomen Abdomen: soft, non tender - Genitourinary normal penis with no external lesions, testicles present - Integumentary no rash, no growths - Neurologic normal coordination, normal sensation - Musculoskeletal normal gait, normal posture - Psychiatric oriented to time, oriented to person, oriented to place, speech is normal, memory intact Results - Imaging CT scan - abdomen: report reviewed, image reviewed CT scan - pelvis: report reviewed, image reviewed Assessment and Plan Assessment: Impression: papillary bladder tumor Plan: turbt
[~2021-12-20 12:58] MED LIST changes: +DEXAMETHASONE SOD PHOSPHATE 4 MG/ML 1 ML VIAL IV ONE; +HYDROmorphone 0.5 MG/0.5 ML SYRINGE IVP PRN; -IV FLUID CONTINUATION 1,000 ML IV ONE; +LIDOCAINE 1% (10MG/ML) FOR IV START INTRADERMA PRN; -LIDOCAINE 1% 20 ML VIAL (10MG/ML) FOR IV START INTRADERMA ONE; +ONDANSETRON 4 MG/2 ML VIAL IVP ONE; +Pre Op ABX Message 1 EACH MISC MISCELLANE ONE; +SCOPOLAMINE 1.5MG/72HR PATCH TRANSDERM ONE
[2021-12-20] MEDS ORDERED: MIDAZOLAM 2 MG/2 ML VIAL IVP ONE (13:50)
[2021-12-20] MEDS ORDERED: NEOSTIGMINE 1 MG/ML 10 ML VIAL ONE (14:12)
[2021-12-20] MEDS ORDERED: ROCURONIUM 10 MG/ML (5 ML VIAL) IV ONE (14:12)
[2021-12-20] MEDS ORDERED: fentaNYL (PF) 50 MCG/ML 2 ML AMP ONE (14:12)
[2021-12-20] MEDS ORDERED: KETOROLAC 15 MG/ML 1 ML VIAL ONE (14:12)
[2021-12-20] MEDS ORDERED: SUCCINYLCHOLINE CHLORIDE 100 MG/5 ML SYR IV ONE (14:12)
[2021-12-20] MEDS ORDERED: GLYCOPYRROLATE 0.2 MG/ML 2 ML VIAL ONE (14:12)
[2021-12-20] MEDS ORDERED: PROPOFOL 10 MG/ML 20 ML VIAL IV ONE (14:12)
[2021-12-20] MEDS ORDERED: MIDAZOLAM 2 MG/2 ML VIAL ONE (14:12)
--- NOTE | 2021-12-20 14:52 | P.OP ---
Date of Procedure: 12/20/21 Preoperative Diagnosis: papillary bladder tumor left lateral trigone, 2.5 cm Postoperative Diagnosis: same Procedure(s) Performed: transurethral resection of bladder tumor, medium (2.5 cm) Anesthesia: CHRISTAL Surgeon: Franklin Maurer Estimated Blood Loss (ml): 10 Pathology: other (bladder tumor) Condition: stable Disposition: PACU Indications for Procedure: the patient is 46. Gross hematuria. He had normal upper tracts. Bladder endoscopy identified a papillary bladder tumor in the left lateral trigone a 2.5 cm Description of Procedure: the patient is brought to the operating suite. He is given general endotracheal anesthesia. He's placed lithotomy position with a sterile prep and drape. Under direct vision the 25-Samoan sheath and direct vision obturator and Foroblique lenses introduced in urethra. Urethra is normal. The prostate is not obstructing. Upon entering the bladder wall there is a papillary appearing tumor lateral to the left renal orifice. With the Qiu resectoscope, super loop the tumor was resected medial to laterally down to muscle base. The base of the tumor is cauterized thoroughly. the tumor is evacuated from the bladder. I reinspected the bladder there is no remaining tumor.the resectoscope removed. An 18-Samoan Zapata catheters placed patient's awakened and returned recovery room good condition. Blood loss is 10 mL. He tolerated the procedure well and will be discharged home upon recovery. The catheter be removed in 3 days and he'll follow in the office in one week
[2021-12-20 14:58] VITALS: TEMP 97.5
[2021-12-20] MEDS ORDERED: LACTATED RINGERS 1,000 ML IV ONE (15:07)
[2021-12-20 15:54] VITALS: RESP 15
[2021-12-20 16:21] VITALS: BP 114/71; PULSE 61
== END 2021-12-20 16:42 | disposition home or self-care (01) ==
LOC: OR 12:58
PROVIDERS: ATTEND Urology
DX: C67.9 Malignant neoplasm of bladder, unspecified (principal); E78.5 Hyperlipidemia, unspecified; I10 Essential (primary) hypertension; M54.9 Dorsalgia, unspecified; Z98.890 Other specified postprocedural states; G47.33 Obstructive sleep apnea (adult) (pediatric); F90.9 Attention-deficit hyperactivity disorder, unspecified type; Z87.891 Personal history of nicotine dependence; Z80.1 Family history of malignant neoplasm of trachea, bronchus and lung; Z80.49 Family history of malignant neoplasm of other genital organs; Z79.1 Long term (current) use of non-steroidal anti-inflammatories (NSAID); Z79.899 Other long term (current) drug therapy
CPT/HCPCS: 52235; 88307; J2250; J1100; J2710; J2405; J3010; J1885; J0330; J2704

== ENCOUNTER → 2022-03-01 | Outpatient (CLI) | payer OTHER ==
--- NOTE | 2022-03-01 20:14 | SFUN ---
SLEEP CENTER FOLLOW UP NOTE DATE OF SERVICE: 03/01/2022. This 46-year-old gentleman has been followed in Sleep Center for treatment of obstructive sleep apnea-hypopnea syndrome. The patient continues to use CPAP equipment every night. At present he has two CPAP units. He started to use two units after he had COVID in December of 2020. The patient continues to use his machines every night. Alexis Sleepiness Scale today is 4, which is totally normal. I checked his CPAP units. Older CPAP unit pressure is 15 cm of water. Usage is 16/30 nights, average usage about 5 hours. Newer CPAP unit is in automatic regimen, range of the pressure 10 to 15, average pressure 13.5. Usage is 18/30 nights and 14/30 nights for more than 4 hours. Leak is 6 L/minute. Apnea-hypopnea index is only 0.2, which is absolutely perfect. MEDICATIONS: 1. Losartan 50 mg twice a day. 2. Metoprolol 25 mg twice a day. 3. Methocarbamol 750 mg as needed. 4. Ibuprofen 800 mg as needed. PHYSICAL EXAMINATION: GENERAL: Pleasant patient in no distress. VITAL SIGNS: BP 133/88, HR 74, RR 15, weight 373.6 pounds. Patient's weight increased by 15 pounds since his previous visit. Temperature 97.4, oxygen saturation at room air 98%. HEENT: PERRLA, EOMI, evaluation of oropharynx showed tongue protrudes midline. Extremely low position of soft palate; Mallampati IV. NECK: Supple, no JVD. Thyroid is not palpable. LUNGS: Clear to percussion and to auscultation. Good air exchange. No wheezing or rhonchi. HEART: S1, S2 regular. No murmurs, gallops, or rubs. ABDOMEN: Obese. EXTREMITIES: No clubbing or cyanosis. SAFETY EQUIPMENT TESTING SPECIALIST: Awake, alert, and oriented X3. Cranial nerves 2 to 7 intact. There is no fasciculation or atrophy. noted. No focal deficits observed. IMPRESSION: 1. Obstructive sleep apnea-hypopnea syndrome. Patient demonstrated great compliance with treatment, benefitting from treatment. Normal respiration on CPAP. 2. History of attention deficit hyperactivity disorder. 3. Obesity. Patient's weight increased by 15 pounds compared to the previous visit. 4. Back problems. 5. History of neck problems. 6. History of numbness in hands. PLAN: 1. Patient will continue to use PAP equipment every night for the whole night. 2. Sleep hygiene with regular time in bed for at least 7-1/2 to 8 hours. 3. Precautions related to driving. No driving if feeling sleepiness. 4. I will maintain all necessary prescription for PAP supplies including mask, tube, filters. 5. Watching weight. 6. Follow-up visit in 6 months or earlier if patient has any problems. Thank you very much for allowing me to participate in the management of your patient. Sincerely, Ino Suarez MD, PhD, FAASM Diplomat of [place] [employer] Sleep Medicine Board of [place] [employer] Crafts Teacher of [facility] [place] MMODL / IJN: [id number] /
== END ==
LOC: SLEEP 13:08
PROVIDERS: ATTEND Internal Medicine
DX: G47.33 Obstructive sleep apnea (adult) (pediatric) (principal); E66.9 Obesity, unspecified; M53.80 Other specified dorsopathies, site unspecified; Z99.89 Dependence on other enabling machines and devices; M53.82 Other specified dorsopathies, cervical region; Z86.69 Personal history of other diseases of the nervous system and sense organs; Z86.59 Personal history of other mental and behavioral disorders; Z87.891 Personal history of nicotine dependence

== ENCOUNTER 2023-12-14 07:46 | Day surgery (SDC) | payer OTHER ==
[2023-12-10 15:57] VITALS: BMI 50.1
[~2023-12-14 07:46] MED LIST changes: -DEXAMETHASONE SOD PHOSPHATE 4 MG/ML 1 ML VIAL IV ONE; -HYDROmorphone 0.5 MG/0.5 ML SYRINGE IVP PRN; -ONDANSETRON 4 MG/2 ML VIAL IVP ONE; -Pre Op ABX Message 1 EACH MISC MISCELLANE ONE; -SCOPOLAMINE 1.5MG/72HR PATCH TRANSDERM ONE
[2023-12-14 08:14] VITALS: TEMP 97
[2023-12-14 08:19] LABS: Glucose,Whole Blood 135 mg/dL (70-110)
[2023-12-14] MEDS ORDERED: PROPOFOL 10 MG/ML 20 ML VIAL IV ONE (08:40)
--- NOTE | 2023-12-14 08:57 | P.PCN ---
Date of Procedure: 12/14/23 Procedure(s) Performed: BRIEF HISTORY: Patient is a 48-year-old pleasant male scheduled for an elective colonoscopy as a part of screening for colon cancer. PROCEDURE PERFORMED: Colonoscopy with biopsy. PREOPERATIVE DIAGNOSIS: Screening for colon cancer. IV sedation per Anesthesia. PROCEDURE: After informed consent was obtained, the patient, was brought into the endoscopy unit. IV sedation was administered by Anesthesia under continuous monitoring. Digital rectal examination was normal. Initially the Olympus CF-160 flexible video colonoscope was then inserted in the rectum, gradually advanced into the cecum without any difficulty. Careful examination was performed as the scope was gradually being withdrawn. Ileocecal valve and the appendiceal orifice were visualized and appeared normal. Prep was excellent. Mucosa of the cecum, ascending colon, normal. In the transverse colon there was a 2-3 mm diminutive transverse colon polyp that was removed by cold biopsy. Rest of the transverse colon, descending colon, sigmoid colon, and rectum appeared normal. Scattered sigmoid diverticulosis. Retroflexion was performed in the rectum and no lesions were seen. The patient tolerated the procedure well. IMPRESSION: 2- 3 mm diminutive transverse colon polyp status post cold biopsy Scattered sigmoid diverticulosis RECOMMENDATIONS: Findings of this examination were discussed with the patient as his family.. He was advised to follow with the biopsy results. Recommend a repeat colonoscopy in 10 years.
[2023-12-14 09:35] VITALS: BP 116/71; PULSE 60; RESP 16
== END 2023-12-14 09:40 | disposition home or self-care (01) ==
LOC: ORWHC2ENDO 07:46
PROVIDERS: ATTEND Internal Medicine Gastroenterology
DX: Z12.11 Encounter for screening for malignant neoplasm of colon (principal); K57.30 Diverticulosis of large intestine without perforation or abscess without bleeding; I10 Essential (primary) hypertension; E78.5 Hyperlipidemia, unspecified; G47.33 Obstructive sleep apnea (adult) (pediatric); E11.9 Type 2 diabetes mellitus without complications; F90.9 Attention-deficit hyperactivity disorder, unspecified type; Z87.891 Personal history of nicotine dependence; Z79.84 Long term (current) use of oral hypoglycemic drugs; Z79.899 Other long term (current) drug therapy
CPT/HCPCS: 88305; 45380; J2704

== ENCOUNTER → 2024-01-09 | Outpatient (CLI) | payer OTHER ==
[2024-01-09 11:04] VITALS: BP 136/94; PULSE 66; RESP 16; TEMP 96.9
--- NOTE | 2024-01-09 14:48 | P.PAINPG ---
PQRS Measure Charge Sheet Comment: HISTORY OF PRESENT ILLNESS: A 48 yr old male as a referral from the [facility] presents today w severe and chronic neck pain x 6 mo secondary to DDD, spondylosis and facet arthropathy without myelopathy for evaluation. Pt states pain level is provoked at 10 /10 in intensity, constant, localized in the lower cervical spine, predominantly axial, burning in character w occasional shooting pain towards the UEs. Pain is provoked by hyperextension. Pain is alleviated by CESIs in [id number] at [facility], PT yrs ago, medications (Tramadol, Robaxin, Mobic), manual massage, repositioning and rest. Cervical disability score at 25. PMH: OA, Cancer, Hyperlipidemia, HTN, ERI, ADD/ ADHD PSH: Colonoscopy w Biopsy (2023), TURP (2021), Bladder CA (2021) SH: 20 pack/ yr tormer tobacco user (Quit 2006), Occasional ETOH use, No illicit drug use FH: Fa- Lung CA. Mo- Cervical CA All: See list Meds: See list REVIEW OF ORGAN SYSTEMS: CONSTITUTIONAL: No fevers or chills. No recent weight loss. NEUROLOGICAL: + numbness and tingling along the distal extremities. No seizure disorders or headaches. MUSCULOSKELETAL: + pain PSYCHIATRIC: Denies current depression or suicidal thoughts. Physical Examinations : Constitutional : Cooperative , not in acute distress . Neurologic : Cranial nerve II to XII intact. No focal neurological deficits. Psychiatric : alert & oriented x 3. Matching mood & appropriate affect. Judgment & insight intact. Musculoskeletal : Cervical Spine Motor strength in the deltoid and biceps: Normal right side. Normal Left side Motor strength biceps and the wrist extensors: Normal right side . Normal left side Motor strength in the triceps muscle: Normal right side. Normal left side Deep tendon reflexes: Normal at the biceps. Normal at Brachioradialis. Normal at triceps Vertebral body tenderness to deep palpation over C6 Cervical facet loading test: positive bilaterally Spurling test: positive bilaterally Neck distraction test: positive bilaterally Devin sign: positive bilaterally Lumbar spine Motor strength lower extremities ,thigh and legs 5/5 Right side , 5/5 Left side Deep tendon reflexes : Normal Knee Jerk. Normal Ankle Jerk Vertebral body tenderness over Tavera Test positive Lumbar facet Loading Test: positive Right / positive Left Range of motion of the lumbar spine Flexion 30 degrees, extension 10 degrees Straight Leg Raise test: Left/ Right positive at degrees Luz Marina test: positive right / positive left. Severe tenderness over the Sacroiliac joint on the Right / Left sides Gaenslen test: positive bilaterally Seated flexion test: positive bilaterally. Sacral spine : Severe tenderness over the Sacroiliac joint: right side / left side Range of motion: Flexion of the lumbar spine <60 degrees Range of motion: Extension of the lumbar spine <20 degrees Gaenslen's Test positive Luz Marina test: positive right side / left side Thigh Thrust Test Sacral Thrust Test Imaging: None on file Assessment/ Plan : Cervical DDD Recommendation of cervical x ray M50.30 May need additional testing if clinically indicated. All questions answered. I have spent greater than 30 minutes on patient care today. Dr Jones was available by phone for the evaluation of this patient. The time was used to review the medical records including relevant urine studies and Prescription history (MAPs), review of the available imaging, evaluation and examination of the patient, coordination of care with the medical staff and if applicable referring physicians, as well as creation of the medical record PQRS Narrative: Smoking Status Former smoker Hx Alcohol Use (MH) Yes: rare Home Medications: Ambulatory Orders Ibuprofen 800 mg PO Q8H PRN 12/15/21 Losartan [Cozaar] 50 mg PO BID 12/15/21 Metoprolol Tartrate 25 mg PO BID 12/15/21 methocarbamoL [Robaxin-750] 750 mg PO DIRECTED PRN 12/15/21 metFORMIN HCL ER [Glucophage XR] 500 mg PO BID 12/10/23 Controlled Substance Measures - Controlled Substance Measures Is patient prescribed a controlled substance at discharge?: No
== END ==
LOC: PNWHC3 09:53
PROVIDERS: ATTEND Specialist
DX: G89.29 Other chronic pain (principal); F98.8 Other specified behavioral and emotional disorders with onset usually occurring in childhood and adolescence; I10 Essential (primary) hypertension; E78.5 Hyperlipidemia, unspecified; K21.9 Gastro-esophageal reflux disease without esophagitis; G47.33 Obstructive sleep apnea (adult) (pediatric); M50.122 Cervical disc disorder at C5-C6 level with radiculopathy; F90.9 Attention-deficit hyperactivity disorder, unspecified type; E66.9 Obesity, unspecified; Z85.51 Personal history of malignant neoplasm of bladder; Z87.891 Personal history of nicotine dependence; Z79.899 Other long term (current) drug therapy
CPT/HCPCS: 99211

== ENCOUNTER → 2024-01-09 | Outpatient (CLI) | payer OTHER ==
--- NOTE | 2024-01-09 21:28 | XR ---
EXAMINATION TYPE: XR cervical spine 4 views limited DATE OF EXAM: 01/09/2024 Comparison: None Clinical History: 48-year-old male M50.30 OTHER CERVICAL DISC DEGENERATION, UNSP CERV Findings: Mild uncovertebral joint and facet arthropathy mid to lower lumbar spine. Mild degenerative disc dise ase noted particularly C5-C6. On the swimmer's view, alignment is maintained. Normal odontoid view. N o predental space widening or prevertebral soft tissue swelling. Impression: Mild spondylotic change lower cervical spine. No prevertebral soft tissue swelling or malalignment.
== END | disposition home or self-care (01) ==
LOC: RADXRMAIN 10:33
PROVIDERS: ATTEND Physician Assistant Medical
DX: M47.812 Spondylosis without myelopathy or radiculopathy, cervical region (principal)
CPT/HCPCS: 72040

== ENCOUNTER → 2024-01-28 | Outpatient (CLI) | payer OTHER ==
[2024-01-28 09:25] VITALS: BP 128/78; PULSE 73; RESP 16; TEMP 97.1
--- NOTE | 2024-01-28 14:20 | P.PAINPG ---
PQRS Measure Charge Sheet Comment: HISTORY OF PRESENT ILLNESS: A 48 yr old male presents today w severe and chronic neck pain x 6 mo secondary to DDD, spondylosis and facet arthropathy without myelopathy for evaluation. Pt states pain level is provoked at 10 /10 in intensity, constant, localized in the lower cervical spine, predominantly axial, burning in character w occasional shooting pain towards the UEs. Pain is provoked by hyperextension. Pain is alleviated by CESIs in [id number] at [facility], PT yrs ago, medications, topical, use of a TENS unit, manual massage, heat, ice, repositioning and rest. Cervical disability score at 25. Pt also complains of LBP > 20 yrs, 6/10 in intensity, constant, waxes & wanes in intensity based on activity, predominantly axial, achy in character w occasional radiation of pain towards the L & R flanks. Pain is provoked w standing/ walking for periods > 15 min. Pain is slightly relieved w medications and rest. Interventional procedures include CESIS (2018, 2019) Medications include Tramadol, Robaxin, Mobic, Voltaren gel REVIEW OF ORGAN SYSTEMS: CONSTITUTIONAL: No fevers or chills. No recent weight loss. NEUROLOGICAL: + numbness and tingling along the distal extremities. No seizure disorders or headaches. MUSCULOSKELETAL: + pain PSYCHIATRIC: Denies current depression or suicidal thoughts. Physical Examinations : Constitutional : Cooperative , not in acute distress . Neurologic : Cranial nerve II to XII intact. No focal neurological deficits. Psychiatric : alert & oriented x 3. Matching mood & appropriate affect. Judgment & insight intact. Musculoskeletal : Cervical Spine Motor strength in the deltoid and biceps: Normal right side. Normal Left side Motor strength biceps and the wrist extensors: Normal right side . Normal left side Motor strength in the triceps muscle: Normal right side. Normal left side Deep tendon reflexes: Normal at the biceps. Normal at Brachioradialis. Normal at triceps Vertebral body tenderness to deep palpation over C7 Cervical facet loading test: positive bilaterally Spurling test: positive bilaterally C7- T1 Neck distraction test: positive bilaterally Devin sign: positive bilaterally Lumbar spine Motor strength lower extremities ,thigh and legs 5/5 Right side , 5/5 Left side Deep tendon reflexes : Normal Knee Jerk. Normal Ankle Jerk Vertebral body tenderness over Tavera Test positive Lumbar facet Loading Test: positive Right / positive Left Range of motion of the lumbar spine Flexion 30 degrees, extension 10 degrees Straight Leg Raise test: Left/ Right positive at degrees Luz Marina test: positive right / positive left. Severe tenderness over the Sacroiliac joint on the Right / Left sides Gaenslen test: positive bilaterally Seated flexion test: positive bilaterally. Sacral spine : Severe tenderness over the Sacroiliac joint: right side / left side Range of motion: Flexion of the lumbar spine <60 degrees Range of motion: Extension of the lumbar spine <20 degrees Gaenslen's Test positive Luz Marina test: positive right side / left side Thigh Thrust Test Sacral Thrust Test Imaging: MRI noncontrast of the cervical spine from 01/21/2024 reviewed Assessment/ Plan : Cervical DDD, Lumbar DDD Recommendation of YUNG C7-T1 #1. May need a series of injections for optimal pain relief. Risks, benefits of procedure discussed and pt verbalized understanding. Protocol for discontinuation/ continuation of medications marcella procedure discussed. Mobic 15mg #30 w 1 RF. Use, side effects, adverse reactions and safe storage discussed. All questions answered. I have spent greater than 30 minutes on patient care today. Dr Jones was available by phone for the evaluation of this patient. The time was used to review the medical records including relevant urine studies and Prescription history (MAPs), review of the available imaging, evaluation and examination of the patient, coordination of care with the medical staff and if applicable referring physicians, as well as creation of the medical record PQRS Narrative: Smoking Status Former smoker Hx Alcohol Use (MH) Yes: rare Home Medications: Ambulatory Orders Ibuprofen 800 mg PO Q8H PRN 12/15/21 Losartan [Cozaar] 50 mg PO BID 12/15/21 Metoprolol Tartrate 25 mg PO BID 12/15/21 methocarbamoL [Robaxin-750] 750 mg PO DIRECTED PRN 12/15/21 metFORMIN HCL ER [Glucophage XR] 500 mg PO BID 12/10/23 Meloxicam [Mobic] 15 mg PO DAILY 30 Days #30 tab 01/28/24 Controlled Substance Measures - Controlled Substance Measures Is patient prescribed a controlled substance at discharge?: No
== END | disposition home or self-care (01) ==
LOC: PNWHC3 08:32
PROVIDERS: ATTEND Specialist
DX: M50.30 Other cervical disc degeneration, unspecified cervical region (principal); M51.36 Other intervertebral disc degeneration, lumbar region; Z87.891 Personal history of nicotine dependence
CPT/HCPCS: 99211

== ENCOUNTER → 2024-02-28 | Outpatient (CLI) | payer OTHER ==
--- NOTE | 2024-02-28 09:58 | MR ---
EXAMINATION TYPE: MR lumbar spine wo con DATE OF EXAM: 02/28/2024 COMPARISON: NONE HISTORY: Low back pain into lower extremities TECHNIQUE: T1 and T2 axial and sagittal images of the lumbar spine are submitted. FINDINGS: There is no abnormal signal seen within the visualized spinal cord or paraspinal soft tissu es. At L1-2 there is no evidence of disc herniation, canal canal stenosis or foraminal encroachment. At L2-3 there is no evidence of degenerative disc disease, disc herniation... No evidence of disc her niation or canal stenosis. No foraminal encroachment. At L3-4 there is no evidence of disc herniation or canal stenosis. No foraminal encroachment. At L4-5 there is mild disc desiccation hypertrophic change of facet joints. There is no foraminal pro trusion or canal stenosis At L5-S1 there is severe degenerative disc disease with broad-based central and right paracentral dis c protrusion or small herniation mildly effacing the thecal sac. Mild right foraminal encroachment. IMPRESSION: 1. Small right paracentral and central disc protrusion or small herniation L5-S1
== END | disposition home or self-care (01) ==
LOC: RADMRIMAIN 08:33
PROVIDERS: ATTEND Family Medicine
DX: M51.27 Other intervertebral disc displacement, lumbosacral region (principal); R20.2 Paresthesia of skin
CPT/HCPCS: 72148

== ENCOUNTER 2024-03-11 08:36 | Day surgery (SDC) | payer OTHER ==
[2024-03-07 15:03] VITALS: BMI 47.0
[~2024-03-11 08:36] MED LIST changes: -LIDOCAINE 1% (10MG/ML) FOR IV START INTRADERMA PRN
[2024-03-11] MEDS: LIDOCAINE 1% (10MG/ML) FOR IV START INTRADERMA ONE (09:28)
[2024-03-11] MEDS: LACTATED RINGERS 1,000 ML IV SCH (09:29)
[2024-03-11 09:32] LABS: Glucose,Whole Blood 95 mg/dL (70-110)
[2024-03-11 09:43] VITALS: TEMP 97.3
[2024-03-11] MEDS ORDERED: fentaNYL (PF) 50 MCG/ML 2 ML AMP ONE (09:55)
[2024-03-11] MEDS ORDERED: MIDAZOLAM 2 MG/2 ML VIAL ONE (09:55)
[2024-03-11] MEDS ORDERED: IOPAMIDOL M200 10 ML VIAL ONE (09:55)
[2024-03-11] MEDS ORDERED: DEXAMETHASONE SOD PHOSPHATE 10 MG/ML 1 ML VIAL ONE (09:55)
--- NOTE | 2024-03-11 10:05 | P.PCN ---
Date of Procedure: 03/11/24 Procedure(s) Performed: . PROCEDURE 1. Cervical epidural steroid injection under fluoroscopic guidance, C7-T1 (fluoroscopy images available in the radiology department ) 2. Cervical epidurogram. PREOPERATIVE DIAGNOSIS: 1- Cervical Degenerative Disc Diseases 2-cervical spondylosis with cervical Facet arthropathy without myelopathy.4-cervical spinal stenosis POSTOPERATIVE DIAGNOSIS: : 1- Cervical Degenerative Disc Diseases , 2- cervical spondylosis with cervical Facet arthropathy without myelopathy. 4-cervical spinal stenosis ANESTHESIA: Moderate sedation with Versed 2 mg and fentanyl 50 mcg.and local anesthesia with lidocaine 1% 3 ml only (Sedation started 09:55, ended at 10:00 ) EBL 0 PROCEDURE INDICATION: The patient with neck pain and radiculitis unresponsive to conservative treatment consents for procedure. PROCEDURE DESCRIPTION / TECHNIQUE: The patient was seen and identified in the preoperative area. Risks, benefits, complications, including but not limited to infections ,bleeding , allergic reactions to the medications ,and not complete pain releife, and alternatives were discussed with the patient, the patient agreed to proceed with the procedure and signed the consent. Patient was taken to the OR and time out was completed. The patient was placed in the prone position on the procedure table. A pillow was placed under the patients chest to increase the cervical interlaminar space. The cervical area was prepped and draped in the usual sterile fashion. Vital signs were closely monitored during the procedure. Using anterior-posterior fluoroscopy, the C7-T1 interlaminar space was identified and the skin over this site was marked and then infiltrated with 1% lidocaine subcutaneously. Subsequently, a 20-gauge 3-1/2-inch Tuohy epidural needle was inserted and advanced toward the epidural space by means of the ``hanging-drop technique and guided by AP and lateral fluoroscopy. The correct needle position in the epidural space was verified with the injection of 2 mL of the water soluble contrast dye Isovue-200 and observing an excellent epidurogram with the epidural spread of the dye, after negative aspiration for blood and CSF and in the absence of paresthesias. then, mixture containing 20 mg Dexamethasone and 2 ml of preservative-free normal saline injected and a washout of epidurogram was seen. Needle was withdrawn intact, skin was cleansed, and bandages were applied. Complications= none. Disposition= patient was placed in supine position and transferred to the recovery room area in stable condition and there was no evidence of upper or lower extremity motor or sensory deficit after the procedure patient was discharged from recovery room after discharge criteria met and home discharge instructions was given by the staff and patient will follow with the pain clinic in 2-4 weeks
[2024-03-11] MEDS: IV FLUID CONTINUATION 1,000 ML IV ONE (10:08)
--- NOTE | 2024-03-11 10:20 | FL ---
Fluoroscopy History: RAJ 3 sec [place] .[id number] DAP dose
[2024-03-11 10:29] VITALS: BP 110/75; PULSE 60; RESP 16
== END 2024-03-11 10:42 | disposition home or self-care (01) ==
LOC: ORPAIN 08:36
PROVIDERS: ATTEND Specialist
DX: M47.22 Other spondylosis with radiculopathy, cervical region (principal); M48.02 Spinal stenosis, cervical region; M50.123 Cervical disc disorder at C6-C7 level with radiculopathy; E11.9 Type 2 diabetes mellitus without complications; Z79.84 Long term (current) use of oral hypoglycemic drugs
CPT/HCPCS: 62321; J2250; J1100; J3010; Q9966

== ENCOUNTER → 2024-04-02 | Outpatient (CLI) | payer OTHER ==
[2024-04-02 10:51] VITALS: BP 142/87; PULSE 83; RESP 16
--- NOTE | 2024-04-02 14:48 | P.PAINPG ---
PQRS Measure Charge Sheet Comment: HISTORY OF PRESENT ILLNESS: A 49 yr old male presents today w severe and chronic neck pain x 6 mo secondary to DDD, spondylosis and facet arthropathy without myelopathy for evaluation s/p YUNG C7-T1 #1. Pt states he experienced 50 % pain relief x 3 wks s/p procedure. Pt states pain level is provoked at 7 /10 in intensity, constant, localized in the lower cervical spine, predominantly axial, burning in character w occasional shooting pain towards the L shoulder and hand. Pain is provoked by hyperextension. Pain is alleviated by CESIs in [id number] at [facility], PT yrs ago, medications, topical, use of a TENS unit, manual massage, heat, ice, repositioning and rest. Cervical disability score at 25. Pt also complains of LBP > 20 yrs, 6/10 in intensity, constant, waxes & wanes in intensity based on activity, predominantly axial, achy in character w occasional radiation of pain towards the L & R flanks. Pain is provoked w standing/ walking for periods > 15 min. Pain is slightly relieved w physician guided home exercise regimen daily since Feb 2024, use of a TENS unit at home, medications and rest. Interventional procedures include CESIS (2018, 2019), YUNG C7-T1 x1 Medications include Tramadol, Robaxin, Mobic, Voltaren gel, Lyrica 75mg #60 REVIEW OF ORGAN SYSTEMS: CONSTITUTIONAL: No fevers or chills. No recent weight loss. NEUROLOGICAL: + numbness and tingling along the distal extremities. No seizure disorders or headaches. MUSCULOSKELETAL: + pain PSYCHIATRIC: Denies current depression or suicidal thoughts. Physical Examinations : Constitutional : Cooperative , not in acute distress . Neurologic : Cranial nerve II to XII intact. No focal neurological deficits. Psychiatric : alert & oriented x 3. Matching mood & appropriate affect. Judgment & insight intact. Musculoskeletal : Cervical Spine Motor strength in the deltoid and biceps: Normal right side. Normal Left side Motor strength biceps and the wrist extensors: Normal right side . Normal left side Motor strength in the triceps muscle: Normal right side. Normal left side Deep tendon reflexes: Normal at the biceps. Normal at Brachioradialis. Normal at triceps Vertebral body tenderness to deep palpation over C6 Cervical facet loading test: positive bilaterally Spurling test: positive L > R C6-C7 Neck distraction test: positive bilaterally Devin sign: positive bilaterally Lumbar spine Motor strength lower extremities ,thigh and legs 5/5 Right side , 5/5 Left side Deep tendon reflexes : Normal Knee Jerk. Normal Ankle Jerk Vertebral body tenderness over L5 Tavera Test positive BL L5-S1 Lumbar facet Loading Test: positive Right / positive Left Range of motion of the lumbar spine Flexion 30 degrees, extension 10 degrees Straight Leg Raise test: Left/ Right positive at degrees Luz Marina test: positive right / positive left. Severe tenderness over the Sacroiliac j oint on the Right / Left sides Gaenslen test: positive bilaterally Seated flexion test: positive bilaterally. Sacral spine : Severe tenderness over the Sacroiliac joint: right side / left side Range of motion: Flexion of the lumbar spine <60 degrees Range of motion: Extension of the lumbar spine <20 degrees Gaenslen's Test positive Luzm Arina test: positive right side / left side Thigh Thrust Test Sacral Thrust Test Imaging: MRI noncontrast of the cervical spine from 01/21/2024 reviewed MRI noncontrast of the lumbar spine from 02/28/24 reviewed Assessment/ Plan : Cervical DDD, L5-S1 DDD Recommendation of YUNG L paramedian YUNG C6-C7 #1. May need a series of injections for optimal pain relief. Risks, benefits of procedure discussed and pt verbalized understanding. Protocol for discontinuation/ continuation of medications marcella procedure discussed. Recommendation of YUNG L5-1 #1. Recommendation of medication management. Lyrica 75mg #60 w 1 RF and Mobic 15mg #30 w 1 RF. Use, side effects, adverse reactions and safe storage discussed. Opiate/ narcotic agreement signed , 04/02/24. All questions answered. I have spent greater than 30 minutes on patient care today. Dr Jones was available by phone for the evaluation of this patient. The time was used to review the medical records including relevant urine studies and Prescription history (MAPs), review of the available imaging, evaluation and examination of the patient, coordination of care with the medical staff and if applicable referring physicians, as well as creation of the medical record - Pain Location Left Lower Neck Non-Pharmacological Interventions: Inactivity, Position/Reposition Pharmacological Interventions: Epidural, PRN Medication, Scheduled Medication, Topical Medication Bilateral Lower Back Non-Pharmacological Interventions: Position/Reposition, Sitting, Standing Pharmacological Interventions: PRN Medication, Scheduled Medication PQRS Narrative: Smoking Status Former smoker Hx Alcohol Use (MH) Yes: rare Home Medications: Ambulatory Orders Losartan [Cozaar] 50 mg PO BID 12/15/21 Metoprolol Tartrate 25 mg PO BID 12/15/21 methocarbamoL [Robaxin-750] 750 mg PO DIRECTED PRN 12/15/21 metFORMIN HCL ER [Glucophage XR] 500 mg PO BID 12/10/23 Meloxicam [Mobic] 15 mg PO DAILY 30 Days #30 tab 01/28/24 Wegovy(Unknown Dose) 1 injection SQ Q7DAYS 03/07/24 Pregabalin [Lyrica] 75 mg PO BID 30 Days #60 cap 03/11/24 Controlled Substance Measures - Controlled Substance Measures Is patient prescribed a controlled substance at discharge?: Yes When asked, does pt state using other controlled substances?: Yes If prescribed controlled substance>3 days was MAPS reviewed?: Yes If Rx opioid, was Start Talking consent form obtained?: Yes Was information provided regarding opioid addiction?: Yes
== END ==
LOC: PNWHC3 09:19
PROVIDERS: ATTEND Specialist
DX: M50.30 Other cervical disc degeneration, unspecified cervical region (principal); M51.37 Other intervertebral disc degeneration, lumbosacral region; Z87.891 Personal history of nicotine dependence
CPT/HCPCS: 99211

== ENCOUNTER 2024-04-08 09:01 | Day surgery (SDC) | payer OTHER ==
[2024-04-04 13:23] VITALS: BMI 46.8
[2024-04-08 09:32] LABS: Glucose,Whole Blood 94 mg/dL (70-110)
[2024-04-08] MEDS: LACTATED RINGERS 1,000 ML IV SCH (09:33)
[2024-04-08 09:43] VITALS: TEMP 97.8
[2024-04-08] MEDS ORDERED: MIDAZOLAM 2 MG/2 ML VIAL ONE (10:04)
[2024-04-08] MEDS ORDERED: DEXAMETHASONE SOD PHOSPHATE 10 MG/ML 1 ML VIAL ONE (10:04)
[2024-04-08] MEDS ORDERED: fentaNYL (PF) 50 MCG/ML 2 ML AMP ONE (10:04)
[2024-04-08] MEDS ORDERED: IOPAMIDOL M200 10 ML VIAL ONE (10:04)
--- NOTE | 2024-04-08 10:13 | P.PCN ---
Date of Procedure: 04/08/24 Procedure(s) Performed: PROCEDURE 1. Cervical epidural steroid injection under fluoroscopic guidance, C6-7 (fluoroscopy images available in the radiology department ) 2. Cervical epidurogram. PREOPERATIVE DIAGNOSIS: 1- Cervical Degenerative Disc Diseases 2-cervical spondylosis with cervical Facet arthropathy without myelopathy.3-cervical spinal stenosis POSTOPERATIVE DIAGNOSIS: : 1- Cervical Degenerative Disc Diseases , 2- cervical spondylosis with cervical Facet arthropathy without myelopathy. 3-cervical spinal stenosis ANESTHESIA: Moderate sedation with Versed 2 mg and fentanyl 100 mcg.and local anesthesia with lidocaine 1% 3 ml only (Sedation started 10:04, ended at 10:10 ) EBL 0 PROCEDURE INDICATION: The patient with neck pain and radiculitis unresponsive to conservative treatment consents for procedure. PROCEDURE DESCRIPTION / TECHNIQUE: The patient was seen and identified in the preoperative area. Risks, benefits, complications, including but not limited to infections ,bleeding , allergic reactions to the medications ,and not complete pain releife, and alternatives were discussed with the patient, the patient agreed to proceed with the procedure and signed the consent. Patient was taken to the OR and time out was completed. The patient was placed in the prone position on the procedure table. A pillow was placed under the patients chest to increase the cervical interlaminar space. The cervical area was prepped and draped in the usual sterile fashion. Vital signs were closely monitored during the procedure. Using anterior-posterior fluoroscopy, the C6-7 interlaminar space was identified and the skin over this site was marked and then infiltrated with 1% lidocaine subcutaneously. Subsequently, a 20-gauge 3-1/2-inch Tuohy epidural needle was inserted and advanced toward the epidural space by means of the ``hanging-drop technique and guided by AP and lateral fluoroscopy. The correct needle position in the epidural space was verified with the injection of 2 mL of the water soluble contrast dye Isovue-200 and observing an excellent epidurogram with the epidural spread of the dye, after negative aspiration for blood and CSF and in the absence of paresthesias. then, mixture containing 20 mg Dexamethasone and 2 ml of preservative-free normal saline injected and a washout of epidurogram was seen. Needle was withdrawn intact, skin was cleansed, and bandages were applied. Complications= none. Disposition= patient was placed in supine position and transferred to the recovery room area in stable condition and there was no evidence of upper or lower extremity motor or sensory deficit after the procedure patient was dis charged from recovery room after discharge criteria met and home discharge instructions was given by the staff and patient will follow with the pain clinic in 2-4 weeks
[2024-04-08] MEDS: IV FLUID CONTINUATION 800 ML IV ONE (10:14)
[2024-04-08 10:23] LABS: Glucose,Whole Blood 113 mg/dL (70-110)
[2024-04-08 10:39] VITALS: BP 113/80; PULSE 67; RESP 16
--- NOTE | 2024-04-08 11:21 | FL ---
EXAMINATION TYPE: FL guided pain mgmt statistic Intraoperative/procedural fluoroscopic services were provided. Total fluoroscopy time is 3.4 seconds with a total of 2 submitted images to PACS. Please se e the operative/procedural note for further details. DAP: [id number] mGym2
== END 2024-04-08 10:59 | disposition home or self-care (01) ==
LOC: ORPAIN 09:01
PROVIDERS: ATTEND Specialist
DX: M47.22 Other spondylosis with radiculopathy, cervical region (principal); M48.02 Spinal stenosis, cervical region; M50.123 Cervical disc disorder at C6-C7 level with radiculopathy
CPT/HCPCS: 62321; J2250; J1100; J3010; Q9966; 99152

== ENCOUNTER → 2024-05-01 | Outpatient (CLI) | payer OTHER ==
[2024-05-01 09:53] VITALS: RESP 16; TEMP 96.9
--- NOTE | 2024-05-01 13:28 | P.PAINPG ---
PQRS Measure Charge Sheet Comment: HISTORY OF PRESENT ILLNESS: A 49 yr old male presents today w severe and chronic neck pain x 6 mo secondary to DDD, spondylosis and facet arthropathy without myelopathy for evaluation s/p YUNG C6-C7 #1. Pt states he experienced 70 % pain relief x 3 wks s/p procedure. Pt states pain level is provoked at 8 /10 in intensity, constant, localized in the lower lumbar spine, predominantly axial, burning in character w occasional shooting pain towards the lateral thighs. Pain is provoked by hyperextension. Pain is alleviated by CESIs in [id number] at [facility], PT yrs ago, medications, topical, use of a TENS unit, manual massage, heat, ice, repositioning and rest. Oswestry axial score at 24 . Pt also complains of LBP > 20 yrs, 6/10 in intensity, constant, waxes & wanes in intensity based on activity, predominantly axial, achy in character w occasional radiation of pain towards the L & R flanks. Pain is provoked w standing/ walking for periods > 15 min. Pain is slightly relieved w physician guided home exercise regimen daily since Feb 2024, use of a TENS unit at home, medications and rest. Interventional procedures include CESIS (2018, 2019), YUNG C7-T1 x1, YUNG C6-C7 x1 Medications include Tramadol, Robaxin, Mobic, Voltaren gel, Lyrica 75mg #60 REVIEW OF ORGAN SYSTEMS: CONSTITUTIONAL: No fevers or chills. No recent weight loss. NEUROLOGICAL: + numbness and tingling along the distal extremities. No seizure disorders or headaches. MUSCULOSKELETAL: + pain PSYCHIATRIC: Denies current depression or suicidal thoughts. Physical Examinations : Constitutional : Cooperative , not in acute distress . Neurologic : Cranial nerve II to XII intact. No focal neurological deficits. Psychiatric : alert & oriented x 3. Matching mood & appropriate affect. Judgment & insight intact. Musculoskeletal : Cervical Spine Motor strength in the deltoid and biceps: Normal right side. Normal Left side Motor strength biceps and the wrist extensors: Normal right side . Normal left side Motor strength in the triceps muscle: Normal right side. Normal left side Deep tendon reflexes: Normal at the biceps. Normal at Brachioradialis. Normal at triceps Vertebral body tenderness to deep palpation over C6 Cervical facet loading test: positive bilaterally Spurling test: positive L > R C6-C7 Neck distraction test: positive bilaterally Devin sign: positive bilaterally Lumbar spine Motor strength lower extremities ,thigh and legs 5/5 Right side , 5/5 Left side Deep tendon reflexes : Normal Knee Jerk. Normal Ankle Jerk Vertebral body tenderness over L5 Tavera Test positive BL L5-S1 Lumbar facet Loading Test: positive Right / positive Left Range of motion of the lumbar spine Flexion 30 degrees, extension 10 degrees Straight Leg Raise test: Left/ Right positive at degrees Luz Marina test: positive right / positive left. Severe tenderness over the Sacroiliac joint on the Right / Left sides Gaenslen test: positive bilaterally Seated flexion test: positive bilaterally. Sacral spine : Severe tenderness over the Sacroiliac joint: right side / left side Range of motion: Flexion of the lumbar spine <60 degrees Range of motion: Extension of the lumbar spine <20 degrees Gaenslen's Test positive Luz Marina test: positive right side / left side Thigh Thrust Test Sacral Thrust Test Imaging: MRI noncontrast of the cervical spine from 01/21/2024 reviewed MRI noncontrast of the lumbar spine from 02/28/24 reviewed Assessment/ Plan : Cervical DDD, L5-S1 DDD Recommendation of YUNG L5-1 #1. May need a series of injections for optimal pain relief. Risks, benefits of procedure discussed and pt verbalized understanding. Protocol for discontinuation/ continuation of medications marcella procedure discussed. Minimal anesthesia including Fentanyl and Versed if clinically indicated. Annalee questions answered I have spent greater than 30 minutes on patient care today. Dr Jones was available by phone for the evaluation of this patient. The time was used to review the medical records including relevant urine studies and Prescription history (MAPs), review of the available imaging, evaluation and examination of the patient, coordination of care with the medical staff and if applicable referring physicians, as well as creation of the medical record PQRS Narrative: Smoking Status Former smoker Hx Alcohol Use (MH) Yes: rare Home Medications: Ambulatory Orders Losartan [Cozaar] 50 mg PO BID 12/15/21 Metoprolol Tartrate 25 mg PO BID 12/15/21 methocarbamoL [Robaxin-750] 750 mg PO DIRECTED PRN 12/15/21 metFORMIN HCL ER [Glucophage XR] 500 mg PO BID 12/10/23 Meloxicam [Mobic] 15 mg PO DAILY 30 Days #30 tab 01/28/24 Pregabalin [Lyrica] 75 mg PO BID 30 Days #60 cap 03/11/24 Semaglutide [Wegovy] 2.4 mg SQ FR 04/04/24 Controlled Substance Measures - Controlled Substance Measures Is patient prescribed a controlled substance at discharge?: No
== END ==
LOC: PNWHC3 09:34
PROVIDERS: ATTEND Specialist
DX: M51.37 Other intervertebral disc degeneration, lumbosacral region (principal); M50.323 Other cervical disc degeneration at C6-C7 level; Z87.891 Personal history of nicotine dependence
CPT/HCPCS: 99211

== ENCOUNTER 2024-05-16 08:18 | Day surgery (SDC) | payer OTHER ==
[2024-05-15 08:31] VITALS: BMI 46.3
[2024-05-16 08:43] LABS: Glucose,Whole Blood 114 mg/dL (70-110)
[2024-05-16 08:45] VITALS: TEMP 97.4
[2024-05-16] MEDS: LACTATED RINGERS 1,000 ML IV ONE (08:45)
[2024-05-16] MEDS: LACTATED RINGERS 1,000 ML IV SCH (08:46)
[2024-05-16] MEDS ORDERED: fentaNYL (PF) 50 MCG/ML 2 ML AMP ONE (09:01)
[2024-05-16] MEDS ORDERED: methylPREDNISolone ACETATE 80 MG/ML 1 ML VIAL ONE (09:01)
[2024-05-16] MEDS ORDERED: MIDAZOLAM 2 MG/2 ML VIAL ONE (09:01)
[2024-05-16] MEDS ORDERED: IOPAMIDOL M200 10 ML VIAL ONE (09:01)
[2024-05-16] MEDS: IV FLUID CONTINUATION 1,000 ML IV ONE (09:15)
--- NOTE | 2024-05-16 09:15 | P.PN ---
Subjective Progress Note Date: 05/16/24 This is 49 years old male with a chronic neck pain and low back pain, patient diagnosed with cervical degenerative disc disease and cervical spondylosis cervical facet arthropathy, and also patient had low back pain he is diagnosed with lumbar degenerative disc disease and lumbar spondylosis with lumbar facet arthropathy, patient currently on multiple pain medication help control his pain he is on Lyrica 75 mg twice a day and Mobic 15 mg p.o. daily, and Robaxin-750 2- 3 times a day as needed, and Ultram 50 mg twice a day as needed, and patient receiving cervical epidural steroid injection and lumbar epidural steroid injection at [facility] pain clinic, patient reported that he continues to have ongoing and chronic pain in the cervical and lumbar area, and the current medication regimen helped to control his pain , but he reported increased history of the pain with increased activity during the daytime, denies any side effect of the medication he denies any excessive drowsiness or sleepiness. Objective - Vital Signs Vital signs: Vital Signs Temp 97.4 F L 05/16/24 08:43 Pulse 74 05/16/24 08:43 Resp 16 05/16/24 08:43 BP 134/71 05/16/24 08:43 Pulse Ox 97 05/16/24 08:43 FiO2 Intake & Output 05/15/24 05/16/24 05/16/24 18:59 06:59 18:59 Intake Total 50 Balance 50 Weight 159.211 kg 161.2 kg Intake: IV 50 - Exam Constitutional : Cooperative , not in acute distress . Neurologic : Cranial nerve II to XII intact. No focal neurological deficits. Psychiatric : alert & oriented x 3. Matching mood & appropriate affect. Judgment & insight intact. Musculoskeletal : Cervical Spine Motor strength in the deltoid and biceps: Normal right side. Normal Left side Motor strength biceps and the wrist extensors: Normal right side . Normal left side Motor strength in the triceps muscle: Normal right side. Normal left side Deep tendon reflexes: Normal at the biceps. Normal at Brachioradialis. Normal at triceps Vertebral body tenderness to deep palpation over C6 Cervical facet loading test: positive bilaterally Spurling test: positive L > R C6-C7 Neck distraction test: positive bilaterally Devin sign: positive bilaterally Lumbar spine Motor strength lower extremities ,thigh and legs 5/5 Right side , 5/5 Left side Deep tendon reflexes : Normal Knee Jerk. Normal Ankle Jerk Vertebral body tenderness over L5 Tavera Test positive BL L5-S1 Lumbar facet Loading Test: positive Right / positive Left Range of motion of the lumbar spine Flexion 30 degrees, extension 10 degrees Straight Leg Raise test: Left/ Right positive at degrees Luz Marina test: positive right / positive left. Severe tenderness over the Sacroiliac joint on the Right / Left sides Gaenslen test: positive bilaterally Seated flexion test: positive bilaterally. - Labs Labs: Abnormal Lab Results - Last 24 Hours (Table) 05/16/24 Range/Units 08:42 POC Glucose (mg/dL) 114 H (70-110) mg/dL Assessment and Plan Plan: Assessment and plan=1-lumbar degenerative disc disease. 2-lumbar spondylosis with lumbar facet arthropathy. 3-cervical degenerative disc disease. 4-cervical spondylosis with cervical facet arthropathy. Patient currently on medication management and also interventional pain management, reported that he continues to have pain and during the daytime with activity, and he is currently on Lyrica 75 mg twice a day, and Mobic 15 mg daily, Robaxin-750 milligram 2-3 times a day, and Ultram 50 mg twice a day PRN, I recommend to continue the medications mentioned above, patient could benefit from changing the dose of Ultram 50 mg every 8 hours as needed ( 3 times daily ). Also patient could benefit from interventional pain management and currently he is here today to have lumbar epidural steroid injection at L5-S1 Time with Patient: Less than 30
--- NOTE | 2024-05-16 09:18 | P.PCN ---
Date of Procedure: 05/16/24 Procedure(s) Performed: PREOPERATIVE DIAGNOSIS: 1- Lumbar Degenerative Disc Diseases 2-Lumbar spondylosis with Facet arthropathy without myelopathy. POSTOPERATIVE DIAGNOSIS: 1-lumbar degenerative disc disease. 2-lumbar spondylosis with facet arthropathy without myelopathy. PROCEDURE 1. Lumbar epidural steroid injection under fluoroscopic guidance at the L5-S1 level. (Fluoroscopy imaging was available in radiology department) 2. Lumbar epidurogram. ANESTHESIA: And moderate sedation with Versed 2 mg and fentanyl 100 mcg lidocaine 1% 3 ml .(Sedation was started at 0901,ended at 09:07 ) EBL: Minimal PROCEDURE INDICATION: The patient with low back pain and radiculitis symptoms unresponsive to conservative treatment. Fluoroscopy was used to optimize visualization of the needle placement and to maximize safety. PROCEDURE DESCRIPTION / TECHNIQUE: The patient was seen and identified in the preoperative area. Risks, benefits, complications including but not limited to infections ,bleeding ,allergic reaction to the medications ,nerve damage and not complete pain releife , and alternatives were discussed with the patient. The patient agreed to proceed with the procedure and signed the consent, and vital signs were stable. sedations was given to decrease patient's anxiety Patient was taken to the OR and time out was completed. The patient was placed in the prone position on procedure table and a pillow was placed under the abdomen to reduce lumbar lordosis. The lumbosacral area was prepped and draped in the usual sterile fashion.ere closely monitored during the procedure. Vital signs was monitered during the entire procedure. Using anterior-posterior fluoroscopy, the L5-S1 interlaminar space was identified and the skin over this site was marked and then infiltrated with 1% lidocaine subcutaneously. Subsequently, a 20-gauge Tuohy epidural needle was inserted and advanced toward the epidural space using the ``Loss of resistance technique and guided by AP and lateral fluoroscopy. The correct needle position in the epidural space was verified with the injection of 2 mL of the water soluble contrast dye Isovue 200 contrast and observing an excellent epidurogram with the epidural spread of the dye, after negative aspiration for blood and CSF and in the absence of paresthesias. Again after negative aspiration, a 6 ml mixture containing 80 mg of Depo-medrol ( Preservetive Free ), and 2 ml of preservative free Normal Saline, and 2 ml of preservative free lidocaine 1% solution was injected and a washout of epidurogram was seen. Needle was withdrawn intact, skin was cleansed, and bandages were applied. COMPLICATIONS: None DISPOSITION / PLANS: The patient was placed in a supine position and transferred to the recovery area in a stable condition for observation. There was no evidence of lower extremity motor or sensory deficit after the procedure. Lupe ent was discharged from the recovery room after meeting discharge criteria. Home discharge instructions were given to the patient by the staff. The patient was reexamined prior to discharge. The patient will schedule a follow up in the clinic in 2-4 weeks.
[2024-05-16 09:32] VITALS: BP 114/73; PULSE 69; RESP 20
--- NOTE | 2024-05-16 10:47 | FL ---
EXAMINATION TYPE: FL guided pain mgmt statistic DATE OF EXAM: 05/16/2024 FLUOROSCOPY Fluoroscopy time of 4 seconds was used during lumbar epidural steroid injection for lumbar radiculopa thy. 1 image/s document/s the procedure. LUMBAR RADICULOPATHY DR. CARABALLO FLUORO 4 SEC DAP .[id number] mGycm2
== END 2024-05-16 09:45 ==
LOC: ORPAIN 08:18
PROVIDERS: ATTEND Specialist
DX: M51.36 Other intervertebral disc degeneration, lumbar region (principal); M47.816 Spondylosis without myelopathy or radiculopathy, lumbar region; G89.29 Other chronic pain; Z79.899 Other long term (current) drug therapy
CPT/HCPCS: 62323; J2250; J3010; Q9966; J1010

== ENCOUNTER → 2024-06-16 | Outpatient (CLI) | payer OTHER ==
[2024-06-16 08:18] VITALS: BP 119/76; PULSE 77; RESP 16; TEMP 96.8
--- NOTE | 2024-06-16 14:27 | P.PAINPG ---
PQRS Measure Charge Sheet Comment: HISTORY OF PRESENT ILLNESS: A 49 yr old male presents today w severe and chronic neck pain x 6 mo secondary to DDD, spondylosis and facet arthropathy without myelopathy for evaluation s/p YUNG L5-S1 #2. Pt states he experienced 60 % pain relief x 4 wks s/p procedure. Pt states pain level is provoked at 7 /10 in intensity, constant, localized in the lower lumbar spine, predominantly axial, burning in character w occasional shooting pain towards the lateral thighs. Pain is provoked by hyperextension. Pain is alleviated by CESIs in [id number] at [facility], PT yrs ago, medications, topical, use of a TENS unit, manual massage, heat & ice, repositioning and rest. Oswestry axial score at 23 . Pt also complains of LBP > 20 yrs, 6/10 in intensity, constant, waxes & wanes in intensity based on activity, predominantly axial, achy in character w occasional radiation of pain towards the L & R flanks. Pain is provoked w standing/ walking for periods > 15 min. Pain is slightly relieved w physician guided home exercise regimen daily since Feb 2024, use of a TENS unit at home, medications and rest. Interventional procedures include CESIS (2018, 2019), YUNG C7-T1 x1, YUNG C6-C7 x1 Medications include Tramadol, Robaxin, Mobic, Voltaren gel, Lyrica 75mg #60 REVIEW OF ORGAN SYSTEMS: CONSTITUTIONAL: No fevers or chills. No recent weight loss. NEUROLOGICAL: + numbness and tingling along the distal extremities. No seizure disorders or headaches. MUSCULOSKELETAL: + pain PSYCHIATRIC: Denies current depression or suicidal thoughts. Physical Examinations : Constitutional : Cooperative , not in acute distress . Neurologic : Cranial nerve II to XII intact. No focal neurological deficits. Psychiatric : alert & oriented x 3. Matching mood & appropriate affect. Judgment & insight intact. Musculoskeletal : Cervical Spine Motor strength in the deltoid and biceps: Normal right side. Normal Left side Motor strength biceps and the wrist extensors: Normal right side . Normal left side Motor strength in the triceps muscle: Normal right side. Normal left side Deep tendon reflexes: Normal at the biceps. Normal at Brachioradialis. Normal at triceps Vertebral body tenderness to deep palpation over C6 Cervical facet loading test: positive bilaterally Spurling test: positive L > R C6-C7 Neck distraction test: positive bilaterally Devin sign: positive bilaterally Lumbar spine Motor strength lower extremities ,thigh and legs 5/5 Right side , 5/5 Left side Deep tendon reflexes : Normal Knee Jerk. Normal Ankle Jerk Vertebral body tenderness over L5 Tavera Test positive BL L5-S1 Lumbar facet Loading Test: positive Right / positive Left Range of motion of the lumbar spine Flexion 30 degrees, extension 10 degrees Straight Leg Raise test: Left/ Right positive at degrees Luz Marina test: positive right / positive left. Severe tenderness over the Sacroiliac joint on the Right / Left sides Gaenslen test: positive bilaterally Seated flexion test: positive bilaterally. Sacral spine : Severe tenderness over the Sacroiliac joint: right side / left side Range of motion: Flexion of the lumbar spine <60 degrees Range of motion: Extension of the lumbar spine <20 degrees Gaenslen's Test positive Luz Marina test: positive right side / left side Thigh Thrust Test Sacral Thrust Test Imaging: MRI noncontrast of the cervical spine from 01/21/2024 reviewed MRI noncontrast of the lumbar spine from 02/28/24 reviewed Assessment/ Plan : Cervical DDD, L5-S1 DDD Recommendation of BL TFESI L5-S1 #4. May need a series of injections for optimal pain relief. Risks, benefits of procedure discussed and pt verbalized understanding. Protocol for discontinuation/ continuation of medications marcella procedure discussed. Minimal anesthesia including Fentanyl and Versed if clinically indicated. Annalee questions answered I have spent greater than 30 minutes on patient care today. Dr Jones was available by phone for the evaluation of this patient. The time was used to review the medical records including relevant urine studies and Prescription history (MAPs), review of the available imaging, evaluation and examination of the patient, coordination of care with the medical staff and if applicable referring physicians, as well as creation of the medical record PQRS Narrative: Smoking Status Former smoker Hx Alcohol Use (MH) Yes: rare Home Medications: Ambulatory Orders Losartan [Cozaar] 50 mg PO BID 12/15/21 Metoprolol Tartrate 25 mg PO BID 12/15/21 methocarbamoL [Robaxin-750] 750 mg PO DIRECTED PRN 12/15/21 metFORMIN HCL ER [Glucophage XR] 500 mg PO BID 12/10/23 Meloxicam [Mobic] 15 mg PO DAILY 30 Days #30 tab 01/28/24 Pregabalin [Lyrica] 75 mg PO BID 30 Days #60 cap 03/11/24 Semaglutide [Wegovy] 2.4 mg SQ FR 04/04/24 traMADol HCl [Ultram] 50 mg PO BID PRN 05/16/24 Controlled Substance Measures - Controlled Substance Measures Is patient prescribed a controlled substance at discharge?: No
== END ==
LOC: PNWHC3 08:04
PROVIDERS: ATTEND Specialist
DX: M50.323 Other cervical disc degeneration at C6-C7 level (principal); M51.37 Other intervertebral disc degeneration, lumbosacral region; Z87.891 Personal history of nicotine dependence
CPT/HCPCS: 99211

== ENCOUNTER → 2024-07-04 | Day surgery (SDC) | payer OTHER ==
[~2024-07-04] MED LIST changes: +IOPAMIDOL M200 10 ML VIAL ONE; +LACTATED RINGERS 1,000 ML BAG ONE; -LACTATED RINGERS 1,000 ML IV SCH; +MIDAZOLAM 2 MG/2 ML VIAL ONE; +fentaNYL (PF) 50 MCG/ML 2 ML AMP ONE; +methylPREDNISolone ACETATE 80 MG/ML 1 ML VIAL ONE
--- NOTE | 2024-07-18 09:37 | FL ---
EXAMINATION TYPE: FL guided pain mgmt statistic DATE OF EXAM: 07/17/2024 FLUOROSCOPY Fluoroscopy time of 5 seconds was used during transforaminal epidural injections. 2 image/s document /s the procedure. Total dose not reported
== END ==
LOC: ORPAIN 08:58
PROVIDERS: ATTEND Specialist
DX: M51.16 Intervertebral disc disorders with radiculopathy, lumbar region (principal)
CPT/HCPCS: 64483

== ENCOUNTER → 2024-07-24 | Outpatient (CLI) | payer OTHER ==
[2024-07-24 09:50] VITALS: BP 142/88; PULSE 65; RESP 16; TEMP 97.8
--- NOTE | 2024-07-24 14:12 | P.PAINPG ---
PQRS Measure Charge Sheet Comment: HISTORY OF PRESENT ILLNESS: A 49 yr old male presents today w severe and chronic neck pain x 6 mo secondary to radiculopathy, spondylosis and facet arthropathy without myelopathy for evaluation s/p BL TFESI L5-S1 #4. Pt states he experienced 50 % pain relief x 3 wks s/p procedure. Pt states pain level is provoked at 5 /10 in intensity, constant, localized in the cervical and lower lumbar spine, predominantly axial, burning in character w occasional shooting pain towards the lateral thighs. Pain is provoked by hyperextension. Pain is alleviated by CESIs in [id number] at [facility], PT yrs ago, medications, topical, use of a TENS unit, manual massage, heat & ice, repositioning and rest. Pt also complains of LBP > 20 yrs, 6/10 in intensity, constant, waxes & wanes in intensity based on activity, predominantly axial, achy in character w occasional radiation of pain towards the L & R flanks. Pain is provoked w standing/ walking for periods > 15 min. Pain is slightly relieved w physician guided home exercise regimen daily since Feb 2024, use of a TENS unit at home, medications and rest. Interventional procedures include CESIs (2018, 2019), YUNG C7-T1 x1, YUNG C6-C7 x1, BL TFESI L5-S1 x1 Medications include Tramadol, Robaxin, Mobic, Voltaren gel, Lyrica 75mg #60 REVIEW OF ORGAN SYSTEMS: CONSTITUTIONAL: No fevers or chills. No recent weight loss. NEUROLOGICAL: + numbness and tingling along the distal extremities. No seizure disorders or headaches. MUSCULOSKELETAL: + pain PSYCHIATRIC: Denies current depression or suicidal thoughts. Physical Examinations : Constitutional : Cooperative , not in acute distress . Neurologic : Cranial nerve II to XII intact. No focal neurological deficits. Psychiatric : alert & oriented x 3. Matching mood & appropriate affect. Judgment & insight intact. Musculoskeletal : Cervical Spine Motor strength in the deltoid and biceps: Normal right side. Normal Left side Motor strength biceps and the wrist extensors: Normal right side . Normal left side Motor strength in the triceps muscle: Normal right side. Normal left side Deep tendon reflexes: Normal at the biceps. Normal at Brachioradialis. Normal at triceps Vertebral body tenderness to deep palpation over C6 Cervical facet loading test: positive bilaterally Spurling test: positive L > R C6-C7 Neck distraction test: positive bilaterally Devin sign: positive bilaterally Lumbar spine Motor strength lower extremities ,thigh and legs 5/5 Right side , 5/5 Left side Deep tendon reflexes : Normal Knee Jerk. Normal Ankle Jerk Vertebral body tenderness over L5 Tavera Test positive BL L5-S1 Lumbar facet Loading Test: positive Right / positive Left Range of motion of the lumbar spine Flexion 30 degrees, extension 10 degrees Straight Leg Raise test: Left/ Right positive at degrees Luz Marina test: positive right / positive left. Severe tenderness over the Sacroiliac joint on the Right / Left sides Gaenslen test: positive bilaterally Seated flexion test: positive bilaterally. Sacral spine : Severe tenderness over the Sacroiliac joint: right side / left side Range of motion: Flexion of the lumbar spine <60 degrees Range of motion: Extension of the lumbar spine <20 degrees Gaenslen's Test positive Luz Marina test: positive right side / left side Thigh Thrust Test Sacral Thrust Test Imaging: MRI noncontrast of the cervical spine from 01/21/2024 reviewed MRI noncontrast of the lumbar spine from 02/28/24 reviewed Assessment/ Plan : Cervical radiculopathy, L5-S1 radiculopathy Recommendation of PT integrated w traction x 6 wks M54.12, M54.16. Hurley 10/325mg #18 NR Use, side effects, adverse reactions, safe storage discussed. All questions answered I have spent greater than 30 minutes on patient care today. Dr Jones was available by phone for the evaluation of this patient. The time was used to review the medical records including relevant urine studies and Prescription history (MAPs), review of the available imaging, evaluation and examination of the patient, coordination of care with the medical staff and if applicable referring physicians, as well as creation of the medical record - Pain Location Lower Back Non-Pharmacological Interventions: Distraction Pharmacological Interventions: Block, Epidural, Medication, PRN Medication PQRS Narrative: Smoking Status Former smoker Hx Alcohol Use (MH) Yes: rare Home Medications: Ambulatory Orders Losartan [Cozaar] 50 mg PO BID 12/15/21 Metoprolol Tartrate 25 mg PO BID 12/15/21 methocarbamoL [Robaxin-750] 750 mg PO DIRECTED PRN 12/15/21 metFORMIN HCL ER [Glucophage XR] 500 mg PO BID 12/10/23 Meloxicam [Mobic] 15 mg PO DAILY 30 Days #30 tab 01/28/24 Pregabalin [Lyrica] 75 mg PO BID 30 Days #60 cap 03/11/24 Semaglutide [Wegovy] 2.4 mg SQ FR 04/04/24 traMADol HCl [Ultram] 50 mg PO TID #0 06/19/24 HYDROcodone/APAP 10-325MG [Hurley 10-325] 1 tab PO Q4HR PRN 3 Days #18 tab 07/24/24 Ibuprofen 800 mg PO Q8H 30 Days #90 tab 07/24/24 Controlled Substance Measures - Controlled Substance Measures Is patient prescribed a controlled substance at discharge?: Yes When asked, does pt state using other controlled substances?: No If prescribed controlled substance>3 days was MAPS reviewed?: Prescribed <3 Days
== END ==
LOC: PNWHC3 09:13
PROVIDERS: ATTEND Specialist
DX: M54.50 Low back pain, unspecified
CPT/HCPCS: 99211

== ENCOUNTER → 2025-02-19 | Outpatient (CLI) | payer OTHER ==
[2025-02-19 11:01] VITALS: BP 132/74; PULSE 60; RESP 16; TEMP 97.1
--- NOTE | 2025-02-19 14:14 | P.PAINPG ---
PQRS Measure Charge Sheet Comment: HISTORY OF PRESENT ILLNESS: A 49 yr old male presents today w severe and chronic neck pain x 6 mo and LBP > 20 yrs secondary to radiculopathy, spondylosis and facet arthropathy without myelopathy for medication refills. Pt states pain level is provoked at 8 /10 in intensity, intermittent, localized in the lower lumbar spine, predominantly axial, burning in character w occasional shooting pain towards the buttocks, hips and LEs. Pain is provoked by standing/ walking for periods > 15 min. Pain is alleviated by CESIs in [id number] at [facility], PT x 6 wks which ended in Jul 2024, physician guided home exercise regimen daily (lumb) since Feb 2024, use of a TENS unit at home, medications, topical, use of a TENS unit, manual massage, heat & ice, repositioning and rest. Interventional procedures include CESIs (2017, 2018), YUNG C7-T1 x1, YUNG C6-C7 x1, BL TFESI L5-S1 x1 Medications include Tramadol, Robaxin, Mobic, Voltaren gel, Lyrica 75mg #60 REVIEW OF ORGAN SYSTEMS: CONSTITUTIONAL: No fevers or chills. No recent weight loss. NEUROLOGICAL: + numbness and tingling along the distal extremities. No seizure disorders or headaches. MUSCULOSKELETAL: + pain PSYCHIATRIC: Denies current depression or suicidal thoughts. Physical Examinations : Constitutional : Cooperative , not in acute distress . Neurologic : Cranial nerve II to XII intact. No focal neurological deficits. Psychiatric : alert & oriented x 3. Matching mood & appropriate affect. Judgment & insight intact. Musculoskeletal : Cervical Spine Motor strength in the deltoid and biceps: Normal right side. Normal Left side Motor strength biceps and the wrist extensors: Normal right side . Normal left side Motor strength in the triceps muscle: Normal right side. Normal left side Deep tendon reflexes: Normal at the biceps. Normal at Brachioradialis. Normal at triceps Vertebral body tenderness to deep palpation over C6 Cervical facet loading test: positive bilaterally Spurling test: positive L > R C6-C7 Neck distraction test: positive bilaterally Devin sign: positive bilaterally Lumbar spine Motor strength lower extremities ,thigh and legs 5/5 Right side , 5/5 Left side Deep tendon reflexes : Normal Knee Jerk. Normal Ankle Jerk Vertebral body tenderness over L5 Tavera Test positive BL L5-S1 Lumbar facet Loading Test: positive Right / positive Left Range of motion of the lumbar spine Flexion 30 degrees, extension 10 degrees Straight Leg Raise test: Left/ Right positive at degrees Luz Marina test: positive right / positive left. Severe tenderness over the Sacroiliac joint on the Right / Left sides Gaenslen test: positive bilaterally Seated flexion test: positive bilaterally. Sacral spine : Severe tenderness over the Sacroiliac j oint: right side / left side Range of motion: Flexion of the lumbar spine <60 degrees Range of motion: Extension of the lumbar spine <20 degrees Gaenslen's Test positive Luz Marina test: positive right side / left side Thigh Thrust Test Sacral Thrust Test Imaging: MRI noncontrast of the cervical spine from 01/21/2024 reviewed MRI noncontrast of the lumbar spine from 02/28/24 reviewed Assessment/ Plan : Cervical radiculopathy, L5-S1 radiculopathy Recommendation of BL TFESI L5-S1 #2 and medication management. Risks, benefits of procedure discussed and patient verbalized understanding. Protocol for discontinuation/continuation of medication surrounding procedure discussed. Tramadol 50mg #90, Lyrica 75mg #60 w 1 RF. Opiate/ narcotic agreement signed 12/25/24. UDS collected 02/19/25. Use, side effects, adverse reactions, safe storage discussed. All questions answered I have spent greater than 30 minutes on patient care today. Dr Jones was available by phone for the evaluation of this patient. The time was used to review the medical records including relevant urine studies and Prescription history (MAPs), review of the available imaging, evaluation and examination of the patient, coordination of care with the medical staff and if applicable referring physicians, as well as creation of the medical record PQRS Narrative: Smoking Status Former smoker Hx Alcohol Use (MH) Yes: rare Home Medications: Ambulatory Orders Losartan [Cozaar] 50 mg PO BID 12/15/21 Metoprolol Tartrate 25 mg PO BID 12/15/21 methocarbamoL [Robaxin-750] 750 mg PO DIRECTED PRN 12/15/21 metFORMIN HCL ER [Glucophage XR] 500 mg PO BID 12/10/23 Meloxicam [Mobic] 15 mg PO DAILY 30 Days #30 tab 01/28/24 Semaglutide [Wegovy] 2.4 mg SQ FR 04/04/24 Ibuprofen 800 mg PO Q8H 30 Days #90 tab 07/24/24 Pregabalin [Lyrica] 75 mg PO BID 30 Days #60 cap 02/19/25 traMADol HCl [Ultram] 50 mg PO TID PRN 30 Days #90 tab 02/19/25 Controlled Substance Measures - Controlled Substance Measures Is patient prescribed a controlled substance at discharge?: Yes When asked, does pt state using other controlled substances?: No If prescribed controlled substance>3 days was MAPS reviewed?: Yes
== END ==
LOC: PNWHC3 08:58
PROVIDERS: ATTEND Specialist
DX: M47.22 Other spondylosis with radiculopathy, cervical region (principal); M47.27 Other spondylosis with radiculopathy, lumbosacral region; Z87.891 Personal history of nicotine dependence
CPT/HCPCS: 80307; 99212

== ENCOUNTER 2025-03-02 07:02 | Emergency (ER) | payer OTHER ==
--- NOTE | 2025-03-02 07:23 | ED ---
General Adult HPI - General Chief complaint: Extremity Injury, Upper Stated complaint: Rt shoulder pain Time Seen by Provider: 03/02/25 07:05 Source: patient, RN notes reviewed Mode of arrival: ambulatory Limitations: no limitations - History of Present Illness Initial comments: Patient is a 49-year-old male present to the emergency department with concerns with right shoulder pain. Patient states this morning he was on the ground playing with his dog. Patient fell forward and landed on his right shoulder. Patient has severe right shoulder pain, increased with movement. No other area of injury or concern. No history of chronic right shoulder problems. - Related Data Home Medications Medication Instructions Recorded Confirmed Losartan [Cozaar] 50 mg PO BID 12/15/21 05/15/24 Metoprolol Tartrate 25 mg PO BID 12/15/21 05/15/24 methocarbamoL [Robaxin-750] 750 mg PO DIRECTED PRN 12/15/21 05/15/24 metFORMIN HCL ER [Glucophage XR] 500 mg PO BID 12/10/23 05/15/24 Semaglutide [Wegovy] 2.4 mg SQ FR 04/04/24 05/15/24 Previous Rx's Medication Instructions Recorded Meloxicam [Mobic] 15 mg PO DAILY 30 Days #30 tab 01/28/24 Ibuprofen 800 mg PO Q8H 30 Days #90 tab 07/24/24 Pregabalin [Lyrica] 75 mg PO BID 30 Days #60 cap 02/19/25 traMADol HCl [Ultram] 50 mg PO TID PRN 30 Days #90 tab 02/19/25 Cyclobenzaprine [Flexeril] 10 mg PO TID PRN #12 tablet 03/02/25 Ibuprofen [Motrin] 600 mg PO Q6HR PRN #20 tab 03/02/25 Allergies Allergy/AdvReac Type Severity Reaction Status Date / Time No Known Allergies Allergy Verified 03/02/25 07:03 Review of Systems ROS Statement: Those systems with pertinent positive or pertinent negative responses have been documented in the HPI. ROS Other: All systems not noted in ROS Statement are negative. Constitutional: Denies: fever Eyes: Denies: eye pain ENT: Denies: ear pain Cardiovascular: Denies: chest pain Gastrointestinal: Denies: abdominal pain Past Medical History Past Medical History: Cancer, Hyperlipidemia, Hypertension, Sleep Apnea/CPAP/BI PAP Additional Past Medical History / Comment(s): Uses CPAP, back pain, bladder tumor diagnosed 12/14/21. ON METFORMIN AND WEGOVY FOR WEIGHT LOSS NOT DIABETES History of Any Multi-Drug Resistant Organisms: None Reported Past Surgical History: Bladder Surgery Additional Past Surgical History / Comment(s): PAIN CLINIC INJECTION., Bladder surgery Past Anesthesia/Blood Transfusion Reactions: No Reported Reaction, Motion Sickness Additional Past Anesthesia/Blood Transfusion Reaction / Comment(s): Never has had general anesthesia or blood transfusion. Past Psychological History: ADD/ADHD Smoking Status: Former smoker Past Alcohol Use History: None Reported Past Drug Use History: None Reported - Past Family History Father Family Medical History: Cancer Additional Family Medical History / Comment(s): Lung cancer. Mother Family Medical History: Cancer Additional Family Medical History / Comment(s): Cervical cancer. General Exam Limitations: no limitations General appearance: alert, in no apparent distress Head exam: Present: atraumatic Eye exam: Present: normal appearance Neck exam: Present: normal inspection. Absent: tenderness Respiratory exam: Present: normal lung sounds bilaterally Cardiovascular Exam: Present: regular rate, normal rhythm Expanded Peripheral pulses: 2+: Radial (R) GI/Abdominal exam: Present: soft. Absent: tenderness Extremities exam: Present: tenderness (Right shoulder with limited range of motion, secondary to pain. Distally the extremity is neurovascular intact.) Neurological exam: Present: alert. Absent: motor sensory deficit Psychiatric exam: Present: normal affect, normal mood Skin exam: Present: normal color Course Vital Signs 03/02/25 07:04 Temperature 98.2 F Pulse Rate 62 Respiratory 19 Rate Blood Pressure 157/101 O2 Sat by Pulse 97 Oximetry Procedures - Orthopedic Joint Reduction Joint #1 Consent Obtained: verbal consent Side: right Joint Reduction Location: shoulder Analgesia: procedural sedation Shoulder Technique Used (if applicable): traction/counter-traction Post-Reduction Neuro Exam: intact Post-Reduction Vascular Exam: intact Post Reduction X-Ray Obtained: Yes Post Reduction X-Ray Results: reduced Patient Tolerated Procedure: well, no complications - Procedural Sedation *Procedural Sedation Start Time: 08:22 *Procedural Sedation Stop Time: 08:43 *Risks,benefits, and alternative therapies discussed?: Yes *Patient indicates understanding of risk/benefit discussion?: Yes *Indications: fracture/dislocation reduction *Previous Adverse Reaction to Anesthesia/Sedation?: No *ASA Class: II *Mallampati Airway Score: 2 *Time of Last PO Intake: 00:00 Preparation: advertising dispatch clerk applied, pulse oximeter, supplemental O2 applied IV Propofol Dose (mgs): 160 Patient Tolerated Procedure: well, no complications Medical Decision Making - Medical Decision Making Was pt. sent in by a medical professional or institution (, BRIANNE, FITTING ROOM MAINTENANCE MECHANIC, urgent care, hospital, or shelter...) When possible be specific @ -No Did you speak to anyone other than the patient for history (EMS, parent, family, police, friend...)? What history was obtained from this source @ -No Did you review nursing and triage notes (agree or disagree)? Why? @ -I reviewed and agree with nursing and triage notes Were old charts reviewed (outside hosp., previous admission, EMS record, old EKG , old radiological studies, urgent care reports/EKG's, shelter records)? Report findings @ -No old charts were reviewed Differential Diagnosis (chest pain, altered mental status, abdominal pain women, abdominal pain men, vaginal bleeding, weakness, fever, dyspnea, syncope, headache, dizziness, GI bleed, back pain, seizure, CVA, palpatations, mental health, musculoskeletal)? @ -Differential Musculoskeletal Muscular strain, contusion, ligament sprain, fracture, arthritis, septic arthritis, bursitis, cellulitis, muscle spasm, nerve compression, DVT, arterial occlusion, herpes zoster, electrolyte abnormality, tumor.... This is not meant to be in all inclusive list EKG interpreted by me (3pts min.). @ -As above X-rays interpreted by me (1pt min.). @ -Right shoulder x-ray shows anterior shoulder dislocation. Postreduction x- ray shows good alignment, Hill-Sachs deformity CT interpreted by me (1pt min.). @ -None done U/S interpreted by me (1pt. min.). @ -None done What testing was considered but not performed or refused? (CT, X-rays, U/S, labs)? Why? @ -None What meds were considered but not given or refused? Why? @ -None Did you discuss the management of the patient with other professionals (professionals i.e. BRIANNE Smith, FITTING ROOM MAINTENANCE MECHANIC, lab, RT, psych nurse, clinical social work therapist, representative government relations, teacher, desk officer, correctional casework specialist)? Give summary @ -No Was smoking cessation discussed for >3mins.? @ -No Was critical care preformed (if so, how long)? @ -No Were there social determinants of health that impacted care today? How? (Homelessness, low income, unemployed, alcoholism, drug addiction, transportation, low edu. Level, literacy, decrease access to med. care, long term, rehab)? @ -No Was there de-escalation of care discussed even if they declined (Discuss DNR or withdrawal of care, Hospice)? DNR status @ -No What co-morbidities impacted this encounter? (DM, HTN, Smoking, COPD, CAD, Cancer, CVA, ARF, Chemo, Hep., AIDS, mental health diagnosis, sleep apnea, morbid obesity)? @ -None Was patient admitted / discharged? Hospital course, mention meds given and route, prescriptions, significant lab abnormalities, going to OR and other pertinent info. @ -Patient presents with right shoulder dislocation. Patient sedated with good reduction. Patient reevaluated and updated. Sling applied. Undiagnosed new problem with uncertain prognosis? @ -No Drug Therapy requiring intensive monitoring for toxicity (Heparin, Nitro, Insulin, Cardizem)? @ -No Were any procedures done? @ -See above Diagnosis/symptom? @ -Right shoulder dislocation Acute, or Chronic, or Acute on Chronic? @ -Acute Uncomplicated (without systemic symptoms) or Complicated (systemic symptoms)? @ -Default Side effects of treatment? @ -No Exacerbation, Progression, or Severe Exacerbation? @ -No Poses a threat to life or bodily function? How? (Chest pain, [place], [place], pneumonia, PE, COPD, DKA, ARF, appy, cholecystitis, CVA, Diverticulitis, Homicidal, Suicidal, threat to staff... and all critical care pts) @ -No Disposition Clinical Impression: Dislocation of shoulder region, Hill Sachs deformity, right Disposition: HOME SELF-CARE Condition: Stable Instructions (If sedation given, give patient instructions): Shoulder Dislocation (ED) Additional Instructions: Please do follow-up with your primary care physician and orthopedics in the next few days for recheck. Return for increased pain, hand or arm problems, weakness, worsening symptoms or any other concerns. Prescription for muscle relaxers sent to pharmacy Prescriptions: Cyclobenzaprine [Flexeril] 10 mg PO TID PRN #12 tablet PRN Reason: Pain Ibuprofen [Motrin] 600 mg PO Q6HR PRN #20 tab PRN Reason: Pain Is patient prescribed a controlled substance at d/c from ED?: No Referrals: Susan Flores PAC [REFERRING] - 1-2 days Kervin Arredondo DO [Doctor of Osteopathic Medicine] - 1-2 days Time of Disposition: 09:06
[2025-03-02] MEDS: HYDROmorphone 1 MG/ML 1 ML SYRINGE IM STA (07:29)
--- NOTE | 2025-03-02 08:06 | XR ---
EXAMINATION TYPE: XR shoulder complete RT DATE OF EXAM: 03/02/2025 7:56 AM INDICATION: Patient age:Male; 49 years old; Reason for study: pain; pain COMPARISON: Chest radiograph 04/17/2010 TECHNIQUE: The right shoulder was examined in AP, internally rotated and scapular Y projections. . FINDINGS: Anterior-inferior dislocation of the right humeral head in relation to the glenoid fossa. No acute fr acture. No soft tissue swelling. The remaining portions of the visualized chest are unremarkable. IMPRESSION: Acute anterior inferior right shoulder dislocation without fracture. [facility], , 03/02/2025 8:04 AM
[2025-03-02] MEDS: PROPOFOL 10 MG/ML 20 ML VIAL IV ONE (08:24)
[2025-03-02] MEDS: KETOROLAC 15 MG/ML 1 ML VIAL IVP STA (08:42)
--- NOTE | 2025-03-02 08:45 | XR ---
EXAMINATION TYPE: XR shoulder limited RT DATE OF EXAM: 03/02/2025 8:38 AM INDICATION: Patient age:Male; 49 years old; Reason for study: post reduction; pain COMPARISON: Right shoulder radiograph the same date TECHNIQUE: The right shoulder was examined in single AP projection. FINDINGS: Reduction of previously seen right shoulder dislocation. There is a wedge-shaped defect along the pos terior lateral aspect of the humeral head. No discrete Bankart lesion identified. No soft tissue swel ling. The remaining portions of the visualized chest are unremarkable. IMPRESSION: 1. Reduction of previously seen right shoulder dislocation. 2. Hill-Sachs defect involving the humeral head. [facility], , 03/02/2025 8:42 AM
[2025-03-02] MEDS: ACET/COD 300 MG/30 MG STARTER PACK 6 TAB BTL PO STA (09:24)
[2025-03-02 15:16] VITALS: RESP 16
[2025-03-02 15:20] VITALS: BP 140/80; PULSE 62
[2025-03-02 15:21] VITALS: TEMP 98.3
== END 2025-03-02 10:00 | disposition home or self-care (01) ==
LOC: EC 07:02
DX: S43.014A Anterior dislocation of right humerus, initial encounter (principal); Z87.891 Personal history of nicotine dependence; W19.XXXA Unspecified fall, initial encounter; Y93.59 Activity, other involving other sports and athletics played individually
CPT/HCPCS: 73020; 73030; 99283; 96374; 96372; 99152; 23650; J1171; J1885; J2704